=== PATIENT | male | born 1935 | race Caucasian/White ===

== ENCOUNTER → 2016-07-23 | Outpatient (CLI) | payer OTHER, BC ==
[~2016-07-23] VITALS: Ht 182.9 cm; Wt 110.7 kg
[~2016-07-23] MED LIST: ALEVE220 M1 PO; ALLOPURINOL 30300 M2 PO; AMBIEN 10 MG TA10 MG PO; ATIVAN1 MG PO; BACTRIM DS TAB1 EACH PO; BENICAR40 MG PO; CELEBREX 200 M200 M1 PO; CLONIDINE HCL0.2 M2 PO; CLONIDINE0.1 PO; COLACE100 MG PO; CYCLOBENZAPRINE5 MG PO; DYAZIDE 37.5-21 EACH PO; EQL CALCIUM IN1 EACH PO; FISHOIL PO; FLOMAX0.4 MG PO; GLUCOSAMINE HC500 MG PO; HYDROCHLOROTHIA25 M1 PO; HYDROCODON-ACE1 EAC5; HYDROCODON-ACE1 EAC8 PO; HYDROCODONE-APA1 TA1 PO; HYSINGLA ER40 MG PO; KEFLEX500 MG PO; LIORESAL 10 MG10 MG PO; LYSINE500 MG PO; MAGNESIUM400 MG PO; MEDROL4 MG PO; MOBIC15 MG PO; MOBIC7.5 MG PO; NEURONTIN 300300 M1 PO; NORCO 10-325 T1 EACH PO; NORCO 5-325 TA1 EACH PO; NORCO 7.5-3251 EACH PO; NORVASC5 MG PO; ONDANSETRON HCL4 M2 PO; PERCOCET 5-3251 EACH PO; POTASSIUM20; PREDNISONE 10 M10 M1 PO; PREDNISONE 20 M20 MG PO; PROSCAR 5MG TABL5 MG PO; RELAFEN750 MG PO; SELENIUM100 MCG PO; TIZANIDINE HCL 22 M1 PO; TIZANIDINE HCL4 MG PO; TRIAMTERENE-HC1 EAC2 PO; VITAMIN A; VITAMIN B COMP1 EACH PO; VITAMIN B-12100 MC1 PO; VITAMIN C 250250 MG PO; VITAMIN D1000 UNI1 PO; VITAMIN D400 UNI1 PO; VITAMINC500 PO
--- NOTE | ~2016-07-23 | HPC ---
[facility] [place] [address] PAIN MANAGEMENT CONSULTATION Name: JOSÉ LUIS SALAMANCA Room #: REG MUSA Shahida#: [id number] Admission: 07/23/16 Attend Phys: Joce Mason DO Discharge: Date of : 35 Report #: [id number] THIS REPORT FOR: //name// CC: Epifanio Mason HISTORY OF PRESENT ILLNESS: The patient is an 81-year-old gentleman, well known to the pain clinic, typically treated for DJD affecting his knees, axial back pain, myofascial pain component, requiring complex medication management. Last urine drug screen was accomplished at last visit 05/27/2016. It was positive for prescribed medications. The patient has been stable on hydrocodone 10/325 up to 4 a day. At last visit, we suggested increased physical activity and maintain current medications. In the interval since we last saw him, he was seen in the ER on 07/17/2016. He states his right knee "buckled", causing trauma to his left toe and knee. He presented to the ER, was found to have a fracture of distal phalange of the left great toe and osteoarthritis in his knee. Today, he notes the knee pain, which had been quite problematic and actually seems to be getting worse somewhat "turned the corner" and is getting little better today. PHYSICAL EXAMINATION: Shows an 81-year-old gentleman, BMI is modestly elevated at 33.1 kilograms per meter squared. Vital signs are generally stable as noted in the EMR. He does have some ballottable edema, left knee. Left great toe is ecchymotic, compatible with the recent fracture. Prior to his fall, he had had some left elbow pain, which was problematic seems to be intermittent. It is unremarkable at this time. Chronic right shoulder pain. Again, remains unchanged. Gait is generally antalgic, favoring the left knee and foot. Diffuse tenderness across the low back. No discrete trigger points are noted. We reviewed the fact that opiate medications are being used to provide analgesia adequate to support activities of daily living, not attempting to achieve a specific pain score on the 0-10 Visual Analog Scale. The current opiate medications are providing sufficient analgesia to allow the patient to participate in activities of daily living. The patient is not exhibiting any aberrant behavior suggestive of drug diversion. The patient is not having any adverse reactions to medications. The patient is not suffering from daytime somnolence or mental acuity changes. The patient is managing opiate-induced constipation with appropriate nwwa-zhf-ccbczpz agents and dietary considerations. The patient was counseled on concern for caution with operating a motor vehicle while using opiate medications. A physical exam was performed and the patient's functional status was evaluated. All patients with back pain were advised against the bed rest greater than 4 days and were advised to return to normal activities. Pain score assessment was noted and the treatment plan was reviewed with the patient. All current medications, both prescribed and OTC were reviewed and reconciled on the [address] [address] PAIN MANAGEMENT CONSULTATION Name: JOSÉ LUIS SALAMANCA Room #: REG Abbey Pinedo#: [id number] Admission: 07/23/16 Attend Phys: Joce Mason DO Discharge: Date of : 35 Report #: [id number] electronic medical record. Tobacco screening was accomplished and smoking cessation was advised when indicated. BMI was noted and diet/exercise modification was recommended for all patients following outside normal parameters. I reviewed with the patient today their responsibilities to safeguard prescription medications, reviewed their responsibility to utilize medications only as prescribed by the physician. They are to seek and receive pain medications only from 1 physician group ( [facility]). They are to use 1 pharmacy and keep the clinic informed if they change pharmacies. Their responsibilities include making followup visits in a timely fashion and to avoid abrupt discontinuation of medication usage. Their responsibilities further include bringing their medications (bottles from the pharmacy with residual pills) to the visit for possible confirmation of pill counts and the patient understands it is their responsibility to submit to random drug screens to ensure both that the medications prescribed are present, and that no other controlled substances are present. All prescriptions provided today were generated electronically. ASSESSMENT: Degenerative joint disease, bilateral knees, axial back pain, requiring complex medication management, recent trauma to the left knee and toe. RECOMMENDATIONS: Continue current medications unchanged, hydrocodone 10/325 up to 4 a day, Meloxicam 15 mg 1 a day, follow up in 2 months for reevaluation. <ELECTRONICALLY SIGNED> By: Joce Mason DO 07/26/16 1538 [id number] Joce Mason DO /nt
[2016-07-23 09:24] VITALS: BP 142/87
== END | disposition home or self-care (01) ==
LOC: PAIN 06:45
DX: M17.0 Bilateral primary osteoarthritis of knee (principal); M54.9 Dorsalgia, unspecified; S92.412A Displaced fracture of proximal phalanx of left great toe, initial encounter for closed fracture; W19.XXXA Unspecified fall, initial encounter

== ENCOUNTER → 2016-09-20 | Outpatient (CLI) | payer OTHER, BC ==
[~2016-09-20] VITALS: Ht 182.9 cm; Wt 109.1 kg
--- NOTE | ~2016-09-20 | HPC ---
[facility] [place] [place] [address] PAIN MANAGEMENT CONSULTATION Name: CHEIKHJOSÉ LUIS Boyd Room #: REG MUSA Pinedo#: [id number] Admission: 09/20/16 Attend Phys: Joce Mason DO Discharge: Date of : 35 Report #: [id number] THIS REPORT FOR: //name// CC: Epifanio Mason HISTORY OF PRESENT ILLNESS: The patient is an 81-year-old gentleman, long known to the pain clinic, being treated for DJD bilateral knees, chronic pain syndrome, axial back pain, myofascial pain requiring complex medication management. Last seen in the pain clinic on 07/23/2016. The patient was continued on hydrocodone 10/325 four a day, meloxicam 15 mg p.r.n., on a nondaily basis, and baclofen 10 mg at bedtime p.r.n. The patient returns to pain clinic today. We had a moderately prolonged visit, he was seen from approximately 08:05 to 08:30 greater than 50% of the 25-minute visit was spent in counseling the patient. Last urine drug screen 05/27/2016 was positive for prescribed medications. I did note that back in 2014, his eGFR was 49. Concerned that with some compromised renal function, we might want to discontinue the meloxicam even though it is only being used on a p.r.n. basis. I did order BUN and creatinine today, after explaining this patient the reasons for this. The patient has lost a fair bit of weight. He still states he wants to lose about 40 pounds. He is at about 240 pounds and wants to get down to 205. We talked about dietary restrictions including using less complex carbohydrates and sugars. I did encourage him to increase caloric consumption i.e. physical activity. We talked at length about walking on a daily basis. If he can walk for 20-40 minutes, to increase his heart rate, this often will increase daily basal metabolic rate. He has had some issues with the knees, chronic right shoulder pain and back pain has been his primary pain complaint. He states his left knee, occasionally is a little problematic with walking. Physical exam shows possible small amount of ballottable edema though fairly nominal, the ligaments are intact. He tells me, he has been diagnosed with "bone on bone" arthritis in his left knee. We talked about Synvisc injections. After discussion with the patient today, it sounds like he may have had a series of three injections at his orthopedist sometime ago with good efficacy. Suggested maybe time to consider revisiting that prospect. We will have him start increasing physical activity, if the knee becomes a very limiting factor for walking, I would strongly suggest he reconsider another series of Synvisc injections. I can do that or he can have his orthopedist do it. Regarding his orthopedist, he did have an MRI of the right shoulder, which did note a rotator cuff tear. His physical therapist, Dr. Clyde De La Rosa has sent him [address] [address] PAIN MANAGEMENT CONSULTATION Name: JOSÉ LUIS DE LA ROSA Room #: REG MUSA Pinedo#: [id number] Admission: 09/20/16 Attend Phys: Joce Mason DO Discharge: Date of : 35 Report #: [id number] to physical therapy. He is in the midst of an 8-week physical therapy course. He will follow up with Dr. De La Rosa at that time for consideration for surgery if indicated. PHYSICAL EXAMINATION: Otherwise today shows an 81-year-old gentleman subjective pain score is 06/10, again, primarily in back and right shoulder. He had fallen before his last visit and had a broken toe, that has healed likely. He describes a constant, aching sensation, exacerbated with walking and other movement. BMI again is 32.6 kilograms per meter squared. Blood pressure is nominally elevated at 144/91, pulse 60, respirations are 18. NEUROLOGIC: Alert and oriented to person, place, and time, judged to be a reasonable historian. Cervical range of motion is full. Right shoulder shows slight decrease in range of motion activity. Some diffuse axial back pain. No discrete trigger points are noted. Lower extremity strength is generally symmetric, as noted, left knee shows some possible ballottable edema, fairly nominal. Ligaments are intact. ASSESSMENT: Degenerative joint disease, bilateral knees by history, left greater than right; chronic pain syndrome requiring complex medication management, axial back pain, myofascial pain component, stable on baseline schedule II narcotic, hydrocodone 10/325 four a day. We reviewed the fact that opiate medications are being used to provide analgesia adequate to support activities of daily living, not attempting to achieve a specific pain score on the 0-10 Visual Analog Scale. The current opiate medications are providing sufficient analgesia to allow the patient to participate in activities of daily living. The patient is not exhibiting any aberrant behavior suggestive of drug diversion. The patient is not having any adverse reactions to medications. The patient is not suffering from daytime somnolence or mental acuity changes. The patient is managing opiate-induced constipation with appropriate teli-kse-jjmzfds agents and dietary considerations. The patient was counseled on concern for caution with operating a motor vehicle while using opiate medications. A physical exam was performed and the patient's functional status was evaluated. All patients with back pain were advised against the bed rest greater than 4 days and were advised to return to normal activities. Pain score assessment was noted and the treatment plan was reviewed with the patient. All current medications, both prescribed and OTC were reviewed and reconciled on the electronic medical record. Tobacco screening was accomplished and smoking cessation was advised when indicated. BMI was noted and diet/exercise modification was recommended for all patients following outside normal parameters. I reviewed with the patient today their responsibilities to safeguard prescription medications, reviewed their responsibility to utilize medications [address] [address] PAIN MANAGEMENT CONSULTATION Name: CHEIKHJOSÉ LUIS Room #: REG [facility].#: [id number] Admission: 09/20/16 Attend Phys: Joce Mason DO Discharge: Date of : 35 Report #: [id number] only as prescribed by the physician. They are to seek and receive pain medications only from 1 physician group ( [facility]). They are to use 1 pharmacy and keep the clinic informed if they change pharmacies. Their responsibilities include making followup visits in a timely fashion and to avoid abrupt discontinuation of medication usage. Their responsibilities further include bringing their medications (bottles from the pharmacy with residual pills) to the visit for possible confirmation of pill counts and the patient understands it is their responsibility to submit to random drug screens to ensure both that the medications prescribed are present, and that no other controlled substances are present. All prescriptions provided today were generated electronically. RECOMMENDATION 1. BUN and creatinine and eGFR today. We will have the patient call back later in the week for this result. If renal function remains somewhat below normal, we will ask him to discontinue Meloxicam altogether. 2. We will continue hydrocodone 10/325 up to 4 a day, baclofen 10 mg at bedtime as needed. Again, last urine drug screen 05/27/2016 was positive for prescribed medications. Increase physical activity including daily walking. Continue with dietary discretion and weight reduction. Discharged in good and stable condition. Follow up in 2 months for reevaluation or earlier if needed for left knee pain. By: [id number] Joce Mason, /nt
[2016-09-20 08:12] VITALS: BP 144/91
[2016-09-20 09:57] LABS: CREATININE 1.3 mg/dL (0.7-1.3)
== END ==
LOC: PAIN 06:47
PROVIDERS: Anesthesiology Pain Medicine
DX: M17.0 Bilateral primary osteoarthritis of knee (principal); G89.4 Chronic pain syndrome

== ENCOUNTER → 2016-11-25 | Outpatient (CLI) | payer OTHER, BC ==
[~2016-11-25] VITALS: Ht 182.9 cm; Wt 108.9 kg
[~2016-11-25] MED LIST changes: +VOLTAREN GEL 1100 G2 TOP
--- NOTE | ~2016-11-25 | HPC ---
[facility] [address] [place] [address] PAIN MANAGEMENT CONSULTATION Name: JOSÉ LUIS SALAMANCA Deb Room #: REG [facility] Shahida#: [id number] Admission: 11/25/16 Attend Phys: Joce Mason DO Discharge: Date of : 35 Report #: [id number] THIS REPORT FOR: //name// CC: Epifanio Mason The patient is a very pleasant 81-year-old gentleman typically treated for axial back pain and DJD affecting bilateral knees with component of right shoulder DJD requiring complex high risk medication management. Last seen in the pain clinic on 09/20/2016. Continue on hydrocodone 10/325 four a day, meloxicam 15 mg on a nondaily basis and baclofen 10 mg at bedtime. Last urine drug screen 05/27/2016 was positive for prescribed medications. I did order BUN and creatinine on the patient, BUN is marginally elevated at 19, creatinine is the high and normal at 1.3. The patient returns to pain clinic today. He notes the pain is generally well controlled. Again, primarily low back, knees and right shoulder. A constant aching sensation. He rates it 3-4 on a VAS, exacerbated with walking and movement. Some relief with medication and being recumbent. He notes he is participating in all activities of his daily living. No problems with daytime somnolence, mental acuity changes or constipation. He did follow up with Dr. Sullivan, he incidentally notes that he is having concerns with increasing urinary frequency and nocturia. PHYSICAL EXAMINATION: GENERAL: Shows an 81-year-old gentleman, BMI is modestly elevated at 32.5 kilograms per meter squared. VITAL SIGNS: Blood pressure 146/89, pulse 60, respirations 20. NEUROLOGIC: Cranial nerves 2-12 are grossly intact. HEENT: Pupils equal, reactive to light and accommodation. Extraocular muscles are intact. MUSCULOSKELETAL: Slight decreased range of motion of the right shoulder and all planes. Strength is generally adequate. Gait is tandem. Subjective tenderness in the low back and bilateral knees, no ballotable edema is noted. ASSESSMENT: Symptomatic degenerative joint disease, affecting bilateral knees, right shoulder, axial back pain requiring high risk complex medication management in a gentleman with benign prostatic hypertrophy, increasing nocturia and frequency, high normal BUN and creatinine levels, and hypertension. RECOMMENDATIONS: 1. We will discontinue meloxicam even nondaily use due to the tenuous renal function and hypertension. We will try Voltaren gel topically to the right [facility] [address] [place] [place] [address] PAIN MANAGEMENT CONSULTATION Name: JOSÉ LUIS SALAMANCA Room #: REG MUSA Shahida#: [id number] Admission: 11/25/16 Attend Phys: Joce Mason DO Discharge: Date of : 35 Report #: [id number] shoulder and knees. Prescriptions were generated for same. 2. Strongly recommend the patient to follow up with his genitourinary physician regarding BPH symptoms of nocturia and frequency. He has been taking finasteride and tamsulosin. 3. Continue current narcotic unchanged, hydrocodone 10/325 up to 4 a day and baclofen 10 mg at bedtime. I have taken the liberty of writing for 2 months of current medications. Follow up at that time, earlier if needed. We did talk about weight reduction, increasing physical activity, consideration for recovery room rn 30 minute walks along with PT which he is currently doing for the shoulder. In total, patient was seen for approximately 25 minutes from 3917-0438 hours. Discharged in good and stable condition. <ELECTRONICALLY SIGNED> By: Joce Mason DO 11/26/16 1225 1519 2344 Joce Mason DO /nt
[2016-11-25 14:51] VITALS: BP 146/89
== END ==
LOC: PAIN 07:05
DX: M17.0 Bilateral primary osteoarthritis of knee (principal); M19.011 Primary osteoarthritis, right shoulder

== ENCOUNTER → 2017-01-17 | Outpatient (CLI) | payer OTHER, BC ==
[~2017-01-17] VITALS: Ht 182.9 cm; Wt 110.2 kg
--- NOTE | ~2017-01-17 | HPC ---
[facility] [address] [place] [address] PAIN MANAGEMENT CONSULTATION Name: JOSÉ LUIS SALAMANCA [id number] Admission: 01/17/17 Attend Phys: Joce Mason DO Discharge: Date of : 35 Report #: [id number] THIS REPORT FOR: //name// CC: Epifanio Mason HISTORY OF PRESENT ILLNESS: The patient is an 81-year-old gentleman well known to the pain clinic, typically treated for axial back pain, DJD affecting bilateral knees and right shoulder; chronic pain requiring complex medication management. Comorbidity includes benign prostatic hypertrophy. Last seen in the pain clinic on 11/25/2016. Continued on hydrocodone 10/325 up to 4 a day. Discontinue meloxicam due to elevated BUN (19), trial Voltaren gel topically. Baclofen 10 mg at bedtime. Returns to pain clinic today. Notes pain impact score is actually fairly low, 24/70. Last urine drug screen was on 12/26/2015. We did obtain a buccal swab today. No aberrant behavior, simply complying with our opiate consent to treat contract. He returns to pain clinic today noting pain is 4 on a VAS. Filled the Voltaren gel, was not helpful. We would like to resume meloxicam. Rates his pain as 4 on a VAS, low back and right shoulder. PHYSICAL EXAMINATION: Shows 81-year-old gentleman, BMI is 32.9 kilograms per meter squared. Blood pressure is modestly elevated at 137/94, pulse 64, respirations are 18. Cervical range of motion is full. Actually right shoulder shows pretty good range of motion. Diffuse tenderness across the low back. Gait is tandem. Lumbar flexion is limited. We reviewed the fact that opiate medications are being used to provide analgesia adequate to support activities of daily living, not attempting to achieve a specific pain score on the 0-10 Visual Analog Scale. The current opiate medications are providing sufficient analgesia to allow the patient to participate in activities of daily living. The patient is not exhibiting any aberrant behavior suggestive of drug diversion. The patient is not having any adverse reactions to medications. The patient is not suffering from daytime somnolence or mental acuity changes. The patient is managing opiate-induced constipation with appropriate plbl-wam-aapwkja agents and dietary considerations. The patient was counseled on concern for caution with operating a motor vehicle while using opiate medications. A physical exam was performed and the patient's functional status was evaluated. All patients with back pain were advised against the bed rest greater than 4 days and were advised to return to normal activities. Pain score assessment was noted and the treatment plan was reviewed with the patient. All current [address] [address] PAIN MANAGEMENT CONSULTATION Name: JOSÉ LUIS SALAMANCA Room #: REG MUSA Pinedo#: [id number] Admission: 01/17/17 Attend Phys: Joce Mason DO Discharge: Date of : 35 Report #: [id number] medications, both prescribed and OTC were reviewed and reconciled on the electronic medical record. Tobacco screening was accomplished and smoking cessation was advised when indicated. BMI was noted and diet/exercise modification was recommended for all patients following outside normal parameters. I reviewed with the patient today their responsibilities to safeguard prescription medications, reviewed their responsibility to utilize medications only as prescribed by the physician. They are to seek and receive pain medications only from 1 physician group ( [facility]). They are to use 1 pharmacy and keep the clinic informed if they change pharmacies. Their responsibilities include making followup visits in a timely fashion and to avoid abrupt discontinuation of medication usage. Their responsibilities further include bringing their medications (bottles from the pharmacy with residual pills) to the visit for possible confirmation of pill counts and the patient understands it is their responsibility to submit to random drug screens to ensure both that the medications prescribed are present, and that no other controlled substances are present. All prescriptions provided today were generated electronically. ASSESSMENT: 1. Chronic axial back pain, lumbar radiculopathy requiring high risk complex medication management. 2. Degenerative joint disease affecting knees and right shoulder. 3. Component of benign prostatic hypertrophy. RECOMMENDATION: 1. We reviewed our opiate consent to treat contract today. Again, buccal drug swab was accomplished today. 2. Continue hydrocodone 10/325 up to 4 a day. 3. We will resume meloxicam 15 mg to be used on a "nondaily" basis, 1 tablet up to 4 times a week. We talked about risks of nonsteroidal anti-inflammatory medications and coronary artery disease risk. We will also monitor BUN and creatinine. We will recheck in 6 months (in the June-July timeframe). Discharged in good and stable condition. Follow up in 2 months for reevaluation. <ELECTRONICALLY SIGNED> By: Joce Mason DO 01/19/17 0802 [id number] Joce Mason DO /nt
[2017-01-17 10:00] VITALS: BP 137/94
== END ==
LOC: PAIN 07:00
DX: M17.0 Bilateral primary osteoarthritis of knee (principal); M19.011 Primary osteoarthritis, right shoulder; M54.16 Radiculopathy, lumbar region

== ENCOUNTER → 2017-03-25 | Outpatient (CLI) | payer OTHER, BC ==
[~2017-03-25] VITALS: Ht 182.9 cm; Wt 109.8 kg
[~2017-03-25] MED LIST changes: +AVAPRO300 MG PO; +BYSTOLIC 5 MG5 M1 PO; +DEMADEX20 MG PO; +EDARBYCLOR 40-1 EACH PO; +ELIQUIS5 MG PO; +HYDROCODON-ACE1 EAC5 PO; +KEFLEX500 M1 PO; +LASIX 40 MG TAB40 M2 PO; +MINOCIN100 MG PO; +POTASSIUM20 PO; +TRAZODONE HCL50 MG PO; +ZANAFLEX4 MG PO
--- NOTE | ~2017-03-25 | HPC ---
[facility] [address] [place] [address] PAIN MANAGEMENT CONSULTATION Name: JOSÉ LUIS SALAMANCA [id number] Admission: 03/25/17 Attend Phys: Joce Mason DO Discharge: Date of : 35 Report #: [id number] THIS REPORT FOR: //name// CC: Epifanio Mason The patient is an 81-year-old gentleman, typically treated for axial back pain, DJD affecting knees, bilateral and right shoulder, requiring high risk complex medication management. The patient was last seen in pain clinic 01/17/2017. He was continued on hydrocodone 10/325 up to 4 a day. Buccal swab random drug screen was accomplished, which was positive for prescribed medications and no others. He returns to pain clinic today noting medications continue to provide sufficient analgesia to participate in activities of daily living. He is having a little bit of lower extremity edema. We checked his BUN last time and it was a little elevated at 19. I have enabled him to take Meloxicam, but only on a nondaily basis. He is taking it once or twice a week. 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 Epifanio Lezama regarding the lower extremity edema, although it is fairly nominal. We did suggest that he hold off on all NSAID use until he sees Dr. Lezama regarding the edema. We reviewed the fact that opiate medications are being used to provide analgesia adequate to support activities of daily living, not attempting to achieve a specific pain score on the 0-10 Visual Analog Scale. The current opiate medications are providing sufficient analgesia to allow the patient to participate in activities of daily living. The patient is not exhibiting any aberrant behavior suggestive of drug diversion. The patient is not having any adverse reactions to medications. The patient is not suffering from daytime somnolence or mental acuity changes. The patient is managing opiate-induced constipation with appropriate syid-slo-rvpbumu agents and dietary considerations. The patient was counseled on concern for caution with operating a motor vehicle while using opiate medications. A physical exam was performed and the patient's functional status was evaluated. All patients with back pain were advised against the bed rest greater than 4 days and were advised to return to normal activities. Pain score assessment was noted and the treatment plan was reviewed with the patient. All current medications, both prescribed and OTC were reviewed and reconciled on the electronic medical record. Tobacco screening was accomplished and smoking cessation was advised when indicated. BMI was noted and diet/exercise modification was recommended for all patients following outside normal parameters. [address] [address] PAIN MANAGEMENT CONSULTATION Name: JOSÉ LUIS SALAMANCA Room #: REG [facility]#: [id number] Admission: 03/25/17 Attend Phys: Joce Mason DO Discharge: Date of : 35 Report #: [id number] I reviewed with the patient today their responsibilities to safeguard prescription medications, reviewed their responsibility to utilize medications only as prescribed by the physician. They are to seek and receive pain medications only from 1 physician group ( [facility]). They are to use 1 pharmacy and keep the clinic informed if they change pharmacies. Their responsibilities include making followup visits in a timely fashion and to avoid abrupt discontinuation of medication usage. Their responsibilities further include bringing their medications (bottles from the pharmacy with residual pills) to the visit for possible confirmation of pill counts and the patient understands it is their responsibility to submit to random drug screens to ensure both that the medications prescribed are present, and that no other controlled substances are present. All prescriptions provided today were generated electronically. The patient states that he has been using hydrocodone up to 4 a day with good efficacy. He rates his subjective pain score 7 on a VAS, pain is exacerbated with movement and walking. He was given baclofen sometime ago for some spasm at bedtime, ne notes really no efficacy with this. Reviewing his chart, it looks like he had had tizanidine back in 2011, it had helped some at that time. PHYSICAL EXAMINATION: Shows an 81-year-old gentleman, BMI is 32.8 kg/m2. Blood pressure 168/85 (recently switched his antihypertensive to Avapro), pulse 73, and respirations 16. He is alert and oriented to person, place and time, judged to be a reasonable historian. Again, moderately endomorphic build, rises from chair using armrest. Gait is tandem, though he has pain in the knees. There is notable ballotable edema and the ligaments are intact. ASSESSMENT: Symptomatic degenerative joint disease, bilateral knees and right shoulder, axial back pain requiring high risk complex medication management, the patient is stable on baseline medication. RECOMMENDATIONS: 1. Continue hydrocodone 10/325, I have taken the liberty of writing 120 tablets with a refill in 4 weeks. 2. I did discontinue baclofen. Try tizanidine 4 mg up to t.i.d., limit 45 tablets for 30 days if needed for spasm. Hold off on Meloxicam until he follows up with Dr. Lezama regarding +1 pretibial edema. Discharged in good and stable condition. <ELECTRONICALLY SIGNED> By: Joce Mason DO 04/07/17 0913 [id number] [id number] Joce Mason, DO /nt
[2017-03-25 09:11] VITALS: BP 168/85
== END ==
LOC: PAIN 07:35
DX: M17.4 Other bilateral secondary osteoarthritis of knee (principal); M19.211 Secondary osteoarthritis, right shoulder; Z79.899 Other long term (current) drug therapy

== ENCOUNTER → 2017-05-06 | Outpatient (CLI) | payer OTHER, BC | LOC: ULTRA 15:11 | DX: R60.0 Localized edema (principal) ==

== ENCOUNTER → 2017-05-26 | Outpatient (CLI) | payer OTHER, BC ==
[~2017-05-26] VITALS: Ht 182.9 cm; Wt 108.9 kg
--- NOTE | ~2017-05-26 | HPC ---
[facility] [address] [place] [address] PAIN MANAGEMENT CONSULTATION Name: CHEIKHJOSÉ LUIS Deb Room #: REG Abbey Pinedo#: [id number] Admission: 05/26/17 Attend Phys: Joce Mason DO Discharge: Date of : 35 Report #: [id number] THIS REPORT FOR: //name// CC: Epifanio Mason DATE OF SERVICE: 05/26/2017 HISTORY OF PRESENT ILLNESS: The patient is an 82-year-old gentleman being treated for DJD affecting knees and shoulders, axial back pain, requiring complex medication management. Last seen in pain clinic on 02/23/2017. Continued on hydrocodone 10/325 up to 4 a day. We rotated from baclofen to tizanidine for p.r.n. spasm. We discontinued meloxicam. He had a little lower extremity pretibial edema. Last random drug screen on 01/17/2017 was positive for prescribed medications. He returns to pain clinic today noting medications generally providing sufficient analgesia to participate in activities of daily living, rates the pain a 4 on a VAS. He does have ongoing arthritis affecting knees and shoulders. BMI is elevated at 32.5 kilograms per meter squared. Blood pressure 140/79, pulse 60, respirations are 20. He has not fallen in the last 3 months. He does use a walker occasionally to help with getting around. He is hypertensive and on Eliquis for cardiac concerns. Medicine list was reconciled. His opiate consent to treat contract was signed on 12/26/2015. Functional assessment tool is . He scores in the low risk on the opiate assessment tool. The patient has started doing physical therapy for his shoulders. This was prescribed by Dr. Clyde De La Rosa. Still has pain in his back, knees and left foot. Again, rates his subjective pain score of 4. I talked about increasing physical activity. He admits to being relatively sedentary presently. We talked about going to one of the local shopping centers and/or "big box stores" and trying to walk for 30-40 minutes 2-3 times a week. We reviewed the fact that opiate medications are being used to provide analgesia adequate to support activities of daily living, not attempting to achieve a specific pain score on the 0-10 Visual Analog Scale. The current opiate medications are providing sufficient analgesia to allow the patient to participate in activities of daily living. The patient is not exhibiting any aberrant behavior suggestive of drug diversion. The patient is not having any adverse reactions to medications. The patient is not suffering from daytime somnolence or mental acuity changes. The patient is managing opiate-induced constipation with appropriate zdcn-brv-eorngbo agents and dietary considerations. The patient was counseled on concern [place] [address] PAIN MANAGEMENT CONSULTATION Name: JOSÉ LUIS DE LA ROSA Room #: REG CLAbbey Pinedo#: [id number] Admission: 05/26/17 Attend Phys: Joce Mason DO Discharge: Date of : 35 Report #: [id number] a motor vehicle while using opiate medications. A physical exam was performed and the patient's functional status was evaluated. All patients with back pain were advised against the bed rest greater than 4 days and were advised to return to normal activities. Pain score assessment was noted and the treatment plan was reviewed with the patient. All current medications, both prescribed and OTC were reviewed and reconciled on the electronic medical record. Tobacco screening was accomplished and smoking cessation was advised when indicated. BMI was noted and diet/exercise modification was recommended for all patients following outside normal parameters. I reviewed with the patient today their responsibilities to safeguard prescription medications, reviewed their responsibility to utilize medications only as prescribed by the physician. They are to seek and receive pain medications only from 1 physician group ( [facility]). They are to use 1 pharmacy and keep the clinic informed if they change pharmacies. Their responsibilities include making followup visits in a timely fashion and to avoid abrupt discontinuation of medication usage. Their responsibilities further include bringing their medications (bottles from the pharmacy with residual pills) to the visit for possible confirmation of pill counts and the patient understands it is their responsibility to submit to random drug screens to ensure both that the medications prescribed are present, and that no other controlled substances are present. All prescriptions provided today were generated electronically. ASSESSMENT: Chronic axial back pain, degenerative joint disease affecting knees and shoulders, requiring complex medication management, stable on baseline medication. RECOMMENDATION: Continue hydrocodone 10/325 up to 4 a day. I have taken the liberty of writing for 2 months of current medication. Follow up at that time, earlier if needed. <ELECTRONICALLY SIGNED> By: Joce Mason DO 05/30/17 0747 1420 0012 Joce Mason DO /nt
[2017-05-26 13:30] VITALS: BP 140/79
== END ==
LOC: PAIN 07:07
DX: M54.9 Dorsalgia, unspecified (principal); M17.0 Bilateral primary osteoarthritis of knee; M19.012 Primary osteoarthritis, left shoulder; M19.011 Primary osteoarthritis, right shoulder; Z79.899 Other long term (current) drug therapy

== ENCOUNTER → 2017-06-27 | Outpatient (CLI) | payer OTHER, BC | LOC: RAD 15:20 | DX: J90 Pleural effusion, not elsewhere classified (principal); I77.819 Aortic ectasia, unspecified site ==

== ENCOUNTER → 2017-07-22 | Outpatient (CLI) | payer OTHER, BC ==
[~2017-07-22] VITALS: Ht 182.9 cm; Wt 106.4 kg
[~2017-07-22] MED LIST changes: -DEMADEX20 MG PO; -EDARBYCLOR 40-1 EACH PO; -HYDROCODON-ACE1 EAC5 PO; -MINOCIN100 MG PO; -POTASSIUM20 PO
--- NOTE | ~2017-07-22 | HPC ---
[facility] [address] [place] [address] PAIN MANAGEMENT CONSULTATION Name: JOSÉ LUIS SALAMANCA Room #: REG [facility] Marycruz.#: [id number] Admission: 07/22/17 Attend Phys: Joce Mason DO Discharge: Date of : 35 Report #: [id number] THIS REPORT FOR: //name// CC: Epifanio Mason HISTORY OF PRESENT ILLNESS: The patient is an 82-year-old gentleman, typically treated for DJD, osteoarthritis of knees and shoulders and axial back pain, requiring complex medication management. Last seen in the pain clinic 05/26/2017. Continued on hydrocodone 10/325 up to 4 a day. We had rotated his muscle relaxant from baclofen to tizanidine due to lack of efficacy. Last random drug screen, 01/17/2017, is positive for prescribed medications. 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 He returns to pain clinic today noting general pain score is 3 on a VAS. Primary pain is low back, bilateral shoulders. Constant, aching sensation, rates it at 3 on a VAS, exacerbated with walking or movement. He has suffered with some lower extremity pretibial edema, left greater than right. To his credit, he has been trying to lose a little bit of weight. His BMI is down to 31.8 kilograms per meter squared. He had been up to around 34 BMI about a year ago, in early 2016. He is working with occupational therapy for fluid mobilization and goes there twice a week. He notes generally medications do provide him sufficient analgesia to participate in activities of daily living. We talked at length today about motivation for exercise. He had a dog years ago, a fairly large dog, that he got great ashely out of walking. Unfortunately, he lives in a rental home now and is unable to keep a pet. 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 Something that we get him out and moving, which may enable him to interact with dogs, which have given him ashely in the past. We reviewed the fact that opiate medications are being used to provide analgesia adequate to support activities of daily living, not attempting to achieve a specific pain score on the 0-10 Visual Analog Scale. The current opiate medications are providing sufficient analgesia to allow the patient to participate in activities of daily living. The patient is not exhibiting any aberrant behavior suggestive of drug diversion. The patient is not having any adverse reactions to medications. The patient is not suffering from daytime somnolence or mental acuity changes. The patient is managing opiate-induced constipation with appropriate yveb-ihn-spozafi agents and dietary considerations. The patient was counseled on concern for caution with operating a motor [place] [address] PAIN MANAGEMENT CONSULTATION Name: JOSÉ LUIS SALAMANCA Room #: REG CL[facility]bey Pinedo#: [id number] Admission: 07/22/17 Attend Phys: Joce Mason DO Discharge: Date of : 35 Report #: [id number] A physical exam was performed and the patient's functional status was evaluated. All patients with back pain were advised against the bed rest greater than 4 days and were advised to return to normal activities. Pain score assessment was noted and the treatment plan was reviewed with the patient. All current medications, both prescribed and OTC were reviewed and reconciled on the electronic medical record. Tobacco screening was accomplished and smoking cessation was advised when indicated. BMI was noted and diet/exercise modification was recommended for all patients following outside normal parameters. I reviewed with the patient today their responsibilities to safeguard prescription medications, reviewed their responsibility to utilize medications only as prescribed by the physician. They are to seek and receive pain medications only from 1 physician group ( [facility]). They are to use 1 pharmacy and keep the clinic informed if they change pharmacies. Their responsibilities include making followup visits in a timely fashion and to avoid abrupt discontinuation of medication usage. Their responsibilities further include bringing their medications (bottles from the pharmacy with residual pills) to the visit for possible confirmation of pill counts and the patient understands it is their responsibility to submit to random drug screens to ensure both that the medications prescribed are present, and that no other controlled substances are present. All prescriptions provided today were generated electronically. PHYSICAL EXAMINATION: GENERAL: Shows pleasant 82-year-old gentleman. BMI 31.8 kilograms per meter squared. VITAL SIGNS: Blood pressure 125/65, pulse 52 and respiratory rate 16. MUSCULOSKELETAL: Rises from the chair using armrest. Gait is generally tandem. Some diffuse back pain and tenderness in the joints. He does have a little pretibial edema as noted, left greater than right leg. He is wearing compressive hose. Strength is symmetric. Lumbar flexion is modestly limited. ASSESSMENT: Chronic axial back pain; degenerative joint disease and osteoarthritis affecting knees and shoulders, requiring complex medication management. Comorbidities include history of lymphoma, now in remission; history of deep venous thrombosis, for which he takes Eliquis; benign prostatic hypertrophy, for which he takes Flomax and Proscar and hypertension, for which he takes Bystolic. PLAN: I would like to continue current medications including hydrocodone [facility] [address] [place] [address] PAIN MANAGEMENT CONSULTATION Name: JOSÉ LUIS SALAMANCA Room #: REG [facility]#: [id number] Admission: 07/22/17 Attend Phys: Joce Mason DO Discharge: Date of : 35 Report #: [id number] up to 4 a day and tizanidine 4 mg t.i.d. for spasm, limit 45 tablets. Follow up in 2 months for reevaluation. <ELECTRONICALLY SIGNED> By: Joce Mason DO 07/25/17 0943 0907 1248 Joce Mason DO /nt
[2017-07-22 12:49] VITALS: BP 125/65
== END ==
LOC: PAIN 07:18
DX: M54.9 Dorsalgia, unspecified (principal); G89.29 Other chronic pain; M17.0 Bilateral primary osteoarthritis of knee; M19.012 Primary osteoarthritis, left shoulder; M19.011 Primary osteoarthritis, right shoulder; N40.0 Benign prostatic hyperplasia without lower urinary tract symptoms; I10 Essential (primary) hypertension; Z79.899 Other long term (current) drug therapy; Z86.718 Personal history of other venous thrombosis and embolism

== ENCOUNTER → 2017-08-12 | Outpatient (CLI) | payer OTHER, BC ==
[2017-08-12 11:14] LABS: CREATININE 1.4 mg/dL (0.7-1.3)
== END ==
LOC: CAT 08-10 16:42 → LABMALL 07:25 → CAT 16:54 → LABMALL 17:47
PROVIDERS: Internal Medicine Hematology & Oncology
DX: C85.12 Unspecified B-cell lymphoma, intrathoracic lymph nodes (principal)

== ENCOUNTER → 2017-09-19 | Outpatient (CLI) | payer OTHER, BC ==
[~2017-09-19] VITALS: Ht 182.9 cm; Wt 109.4 kg
--- NOTE | ~2017-09-19 | HPC ---
[facility] [address] [place] [address] PAIN MANAGEMENT CONSULTATION Name: JOSÉ LUIS SALAMANCA [facility] #: [facility] [id number] Admission: 09/19/17 Attend Phys: Joce Mason DO Discharge: Date of : 35 Report #: [id number] THIS REPORT FOR: //name// CC: Epifanio Mason DATE OF SERVICE: 09/19/2017 HISTORY OF PRESENT ILLNESS: The patient is an 82-year-old gentleman, long treated for axial back pain, osteoarthritis affecting shoulders and knees requiring complex medication management. Last seen in the pain clinic on 07/22/2017, continued on hydrocodone 10/325 four a day, tizanidine 4 mg 1 tablet as needed for spasm, limit 45 tablets for 30 days. Last random drug screen on 01/17/2017 was positive for prescribed medications and no others. The patient has multiple comorbidities including lymphoma which has been treated, is now in remission. History of DVT, on Eliquis. Unfortunately since our last medication visit, he developed some hematochezia and is now off the Eliquis. Some chronic right shoulder issues with diagnosis of rotator cuff injury, though to his credit, he is doing some range of motion activity and while he has weakness to resistance right rotator cuff muscles, his abduction and extension are fairly full range of motion for both shoulders. PHYSICAL EXAMINATION: Otherwise, physical exam is relatively unchanged, an 82-year-old gentleman, BMI is 32.7 kilograms per meter squared. Vital signs are stable as noted in the EMR. Alert and oriented to person, place and time, judged to be a reasonable historian. Rises from chair using the armrest. Has diffuse axial back pain. No discrete trigger points are noted. We reviewed the fact that opiate medications are being used to provide analgesia adequate to support activities of daily living, not attempting to achieve a specific pain score on the 0-10 Visual Analog Scale. The current opiate medications are providing sufficient analgesia to allow the patient to participate in activities of daily living. The patient is not exhibiting any aberrant behavior suggestive of drug diversion. The patient is not having any adverse reactions to medications. The patient is not suffering from daytime somnolence or mental acuity changes. The patient is managing opiate-induced constipation with appropriate gbca-psi-gfdsqfq agents and dietary considerations. The patient was counseled on concern for caution with operating a motor vehicle while using opiate medications. A physical exam was performed and the patient's functional status was evaluated. [address] [address] PAIN MANAGEMENT CONSULTATION Name: JOSÉ LUIS SALAMANCA Room #: REG CL Shahida#: [id number] Admission: 09/19/17 Attend Phys: Joce Mason DO Discharge: Date of : 35 Report #: [id number] All patients with back pain were advised against the bed rest greater than 4 days and were advised to return to normal activities. Pain score assessment was noted and the treatment plan was reviewed with the patient. All current medications, both prescribed and OTC were reviewed and reconciled on the electronic medical record. Tobacco screening was accomplished and smoking cessation was advised when indicated. BMI was noted and diet/exercise modification was recommended for all patients following outside normal parameters. I reviewed with the patient today their responsibilities to safeguard prescription medications, reviewed their responsibility to utilize medications only as prescribed by the physician. They are to seek and receive pain medications only from 1 physician group ([facility]). They are to use 1 pharmacy and keep the clinic informed if they change pharmacies. Their responsibilities include making followup visits in a timely fashion and to avoid abrupt discontinuation of medication usage. Their responsibilities further include bringing their medications (bottles from the pharmacy with residual pills) to the visit for possible confirmation of pill counts and the patient understands it is their responsibility to submit to random drug screens to ensure both that the medications prescribed are present, and that no other controlled substances are present. All prescriptions provided today were generated electronically. ASSESSMENT: Chronic axial back pain, osteoarthritis affecting knees and shoulders, chronic pain syndrome requiring complex medication management, stable on baseline medication including hydrocodone 10/325 up to 4 a day, tizanidine 4 mg 1 tablet up to t.i.d. as needed for spasm, typically 1-2 at bedtime, limit 45 tablets for 30 days. Follow up in 2 months for reevaluation. Reviewed that I am leaving the practice, will have him follow up with one of my [facility] partners. He has been stable on his medication for quite some time. No aberrant behavior suggestive of drug diversion. We will want to repeat another drug screen sometime this fall. By: 1549 0226 Joce Mason, /nt
[2017-09-19 12:59] VITALS: BP 150/83
== END ==
LOC: PAIN 06:34
DX: M17.0 Bilateral primary osteoarthritis of knee (principal); M19.012 Primary osteoarthritis, left shoulder; M19.011 Primary osteoarthritis, right shoulder; M54.5 Low back pain; G89.4 Chronic pain syndrome; Z79.899 Other long term (current) drug therapy

== ENCOUNTER 2017-09-22 17:15 | Inpatient (IN) | payer OTHER, BC ==
[~2017-09-22] VITALS: Ht 182.9 cm; Wt 108.1 kg
--- NOTE | ~2017-09-22 | D ---
[facility] [place] [address] [place] [address] DISCHARGE SUMMARY Name: JOSÉ LUIS SALAMANCA Room #: 214-P [facility] M.R.#: [id number] Admission: 09/22/17 Attend Phys: Arnoldo Sullivan MD, Discharge: Date of : 35 Report #: [id number] THIS REPORT FOR: //name// CC: Arnoldo Lezama DATE OF SERVICE: 09/24/2017 HOSPITAL COURSE: The patient is an 82-year-old male who was found to have intermittent complete heart block and significant bradydysrhythmias in the 20s. He subsequently was admitted and seen by the EP Service. He had a permanent pacemaker placed by Dr. Mendez yesterday. It has been interrogated this morning. It is appropriately working. He had a dual chamber [employer] pacemaker placed. The interrogation was unremarkable. The chest x-ray also unremarkable. Except for being mildly sore in his right shoulder, he has no complaints. The chest x-ray shows pacemaker placement. No pneumothorax. The patient will be discharged home with post-pacemaker instructions. He will resume his home medications, these will include Proscar, baclofen, irbesartan 300, Flomax, torsemide 20 mg, Trazodone 50. Followup will be scheduled in 7-[address] Mendez for a site check, and then, subsequently he will maintain follow up with myself in 4 months. He is to follow pacemaker restrictions. DISCHARGE DIAGNOSES: 1. Complete heart block with severe bradydysrhythmias. 2. Hypertension. 3. Paroxysmal atrial fibrillation. No clear documentation of this recently. 4. Prior B cell lymphoma. 5. Chronic back pain due to spinal stenosis. RECOMMENDATIONS AND PLAN: As stated above. By: 0916 0939 Arnoldo Sullivan MD, FACC /nt
--- NOTE | ~2017-09-22 | P ---
[facility] [place] [address] PROCEDURE REPORT Name: JOSÉ LUIS SALAMANCA Room #: 214-P [facility] IN M.R.#: [id number] Admission: 09/22/17 Attend Phys: Arnoldo Sullivan MD, Discharge: 09/24/17 Date of : 35 Report #: [id number] THIS REPORT FOR: //name// CC: Arnoldo Lezama DATE OF SERVICE: 09/23/2017 PACEMAKER IMPLANTATION: PREOPERATIVE DIAGNOSIS: Third-degree heart block. POSTOPERATIVE DIAGNOSIS: Third-degree heart block. 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 He is here for dual chamber pacemaker implantation. ANESTHESIA: The patient underwent MAC anesthesia with no anesthesia related complications. DESCRIPTION OF PROCEDURE: The patient underwent informed consent where we discussed the details of the procedure including the risk, which include but not limited to bleeding, infection, vascular damage, cardiac perforation, and pneumothorax. He understood these risks and is willing to proceed. The patient was brought to the EP laboratory in fasting and sedated state, prepped and draped in a sterile fashion. The pacemaker was placed on the right side given that he has a left-sided port. I obtained access. The patient received IV vancomycin prior to the procedure. The venogram showed patency of the right axillary vein. Next, lidocaine was injected. Incision was made and a pocket was created over the prepectoral fascia and access was obtained twice of the right axillary vein using the extrathoracic approach with sheaths positioned using the modified Seldinger technique. Next, leads were positioned in the right ventricular apex and right atrial appendage both with adequate pacing and sensing thresholds. Of note, the atrium had very poor P waves throughout, which is likely due to his advanced age. Next, leads were sutured to the prepectoral fascia. The device was connected, placed in the pocket. Pocket was closed in 3 layers after being irrigated with vancomycin. Steri-Strip was placed at the lateral edge. The patient awoke neurologically and hemodynamically intact with no complications and no significant bleeding. The implanted pacemaker was a [employer], model #RR2886, serial #[id number]. The atrial lead is [employer] model #2088, serial #[id number] with a P-wave of 0.7 millivolts, pacing impedance of 398 ohms and the pacing threshold 1.4 volts at 0.4 milliseconds. RV lead was [employer] model #2088TC, [address] [address] PROCEDURE REPORT Name: JOSÉ LUIS SALAMANCA Room #: 214-[facility] IN .R.#: [id number] Admission: 09/22/17 Attend Phys: Arnoldo Sullivan MD, Discharge: 09/24/17 Date of : 35 Report #: [id number], serial #[id number]. This lead demonstrated R waves of 5.1 millivolts, pacing impedance of 463 ohms and the pacing threshold 0.5 volts at 0.4 milliseconds. The pacemaker was programmed to the DDD 60-130 mode. CONCLUSIONS: 1. Successful dual-chamber pacemaker implantation. 2. Satisfactory atrial and ventricular pacing and sensing thresholds. <ELECTRONICALLY SIGNED> By: Kiran Mendez MD 10/03/17 1330 1756 2123 Kiran Mendez MD /nt
--- NOTE | ~2017-09-22 | HC ---
[facility] [place] [address] CONSULTATION Name: JOSÉ LUIS SALAMANCA Room #: 214-P [facility] IN ..#: [id number] Admission: 09/22/17 Attend Phys: Arnoldo Sullivan MD, Discharge: 09/24/17 Date of : 35 Report #: [id number] THIS REPORT FOR: //name// CC: Arnoldo Lezama DATE OF SERVICE: 09/23/2017 REASON FOR CONSULTATION: Complete heart block. 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 Sullivan with increased fatigue. He was noted to be bradycardic in the clinic. As such, his beta blockers were stopped. He was sent home with a veterans contact representative, which has demonstrated frequent episodes of complete heart block. This did not improve with cessation of beta tequila medications. His most recent echo was on 08/04/2017 showing EF of 65-70% with PA pressures in the 50s. He denies any chest pain. He does have increased shortness of breath and exertional dyspnea and some lightheadedness, but no syncope. REVIEW OF SYSTEMS: A 12-point review of systems was performed and was negative other than what I mentioned above. PAST MEDICAL HISTORY: As mentioned above. FAMILY HISTORY: Hypertension. SOCIAL HISTORY: He quit smoking. ALLERGIES: He has no known drug allergies. PHYSICAL EXAMINATION: VITAL SIGNS: Temperature 36.7, pulse 64, respiration 18, blood pressure 145/83, sats 93-97%. GENERAL: No acute distress. HEENT: Sclerae anicteric. Oropharynx is clear. NECK: Supple, no thyromegaly. HEART: Regular rate and rhythm with no murmurs, rubs, gallops. LUNGS: Clear to auscultation bilaterally. ABDOMEN: Soft, nontender, nondistended with no hepatosplenomegaly. EXTREMITIES: No clubbing, cyanosis or edema. NEUROLOGIC: Cranial nerves 2-12 are intact. LABORATORY DATA: White count 6, hemoglobin 15, platelets 158. Coags 1.0. Chemistries: Sodium 141, potassium 3.5, creatinine 1.2. Troponin is normal. [address] [address] CONSULTATION Name: JOSÉ LUIS SALAMANCA Room #: 214-P [facility] IN .R.#: [id number] Admission: 09/22/17 Attend Phys: Arnoldo Sullivan MD, Discharge: 09/24/17 Date of : 35 Report #: [id number] Chest x-ray shows no acute process. A 12-lead EKG shows a first-degree AV block with a right bundle branch block and 1:1 conduction. His chest x-ray shows left-sided port placed. ASSESSMENT: 1. Symptomatic bradycardia. 2. Symptomatic bradycardia secondary to sick sinus syndrome. 3. Symptomatic bradycardia secondary to complete heart block. 4. Atrial fibrillation. 5. Peripheral vascular disease. 6. B-cell lymphoma status post port placement. In summary, the patient has evidence of sinus bradycardia while sleeping, but also evidence of complete heart block despite stopping beta tequila therapy. As such, the patient meets criteria for dual chamber pacemaker implantation. We have discussed the details of the procedure including the risks, which include but not limited to bleeding, infection, vascular damage, cardiac perforation and pneumothorax. He understands these risks and is willing to proceed. Given his left-sided port, we will proceed with a right-sided dual chamber pacemaker insertion. Given his history of lymphoma, I would recommend that he undergo an MRI compatible pacemaker implantation. <ELECTRONICALLY SIGNED> By: Kiran Mendez MD 10/03/17 1330 1228 1929 Kiran Mendez MD /nt
--- NOTE | ~2017-09-22 | H ---
[facility] [place] [address] HISTORY AND PHYSICAL Name: JOSÉ LUIS SALAMANCA Room #: 214-P ADM IN M.R.#: [id number] Admission: 09/22/17 Attend Phys: Arnoldo Sullivan MD, Discharge: Date of : 35 Report #: [id number] THIS REPORT FOR: //name// CC: Arnoldo Lezama MD DATE OF SERVICE: 09/22/2017 HISTORY OF PRESENT ILLNESS: The patient is an 82-year-old male who I admitted directly to the CCU tonight. He has been having a history of some questionable paroxysmal AFib, Wenckebach and second degree heart block. A monitor was placed and showing significant periods of complete heart block with rates as low as 23-25 beats per minute. He has felt sluggish, but not syncopal or presyncopal. He lives independently in a house with 3 other gentleman in his own room. No current alcohol or tobacco use. He has felt fatigued at times, but he has not had any syncope, but with long periods of extensive complete heart block with AV dissociation. There is of AFib, although not on this monitor. There is some Wenckebach noted in addition. He appears to be in sinus rhythm tonight with a second-degree type 1 heart block, intermittent dropped beats here. His blood pressure has been maintained. He is alert and oriented. Denies any chest pain or pressure. He had a chest x-ray that is unremarkable. Echo Doppler was performed in our office on 08/04/2017, that report shows a concentric LVH, moderate grade 2 diastolic dysfunction, biatrial enlargement of a severe nature, mild to moderate MR and TR. PA pressure was 50. Aortic root mildly dilated 4.4 with mild aortic insufficiency. That will be in the Infinite system. MEDICATIONS: We had stopped his Bystolic when we saw him on 09/07/2017. His other meds have been baclofen, Crozet, irbesartan 300, Flomax, Demadex 20, Desyrel 50. PAST MEDICAL HISTORY: Positive for history of some paroxysmal AFib, Eliezer previously noted, bradycardia, thoracic aortic dissection, B-cell lymphoma, spinal stenosis, chronic back pain, degenerative joint disease, benign prostatic hypertrophy, hypertension, hypercholesterolemia, appendectomy, cholecystectomy, hernia repair, parathyroidectomy and hypercalcemia back in 2013, and tonsillectomy. SOCIAL HISTORY: He is . He does have some children in their 50s. He lives independently. No current alcohol or tobacco. He is retired. FAMILY HISTORY: Negative for premature coronary artery disease or sudden . REVIEW OF SYSTEMS: Essentially negative except for stated above with some nocturia. [facility] [address] [place] [address] HISTORY AND PHYSICAL Name: CHEIKHJOSÉ LUIS Deb Room #: 214-P [facility] IN M.R.#: [id number] Admission: 09/22/17 Attend Phys: Arnoldo Sullivan MD, Discharge: Date of : 35 Report #: [id number] LABORATORY DATA: Sodium 141, potassium 3.1, I will replace; BUN 21, creatinine 1.2, glucose 98. Liver function tests appear to be relatively normal. INR was 1.0. H and H is 15 and 46, white count 6000 and platelets 158. Chest x-ray was unremarkable. PHYSICAL EXAMINATION: GENERAL: Pleasant, alert. VITAL SIGNS: Pulse is in the 60 range. Blood pressure is 160/64. HEENT: Eyes reveal xanthelasmas. Pharynx is clear. NECK: Shows preserved upstrokes without JVD or bruits. LUNGS: Clear. CARDIAC: Regular rate and rhythm, S1, S2. ABDOMEN: Soft. No HSM or abdominal bruit. EXTREMITIES: Reveal trace of nonpitting edema. NEUROLOGIC: Nonfocal. SKIN: Warm and dry without xanthoma or ulcer. MUSCULOSKELETAL: Generalized arthritic changes. ASSESSMENT: 1. Complete heart block with significant bradycardia and pauses, relatively borderline symptomatic. 2. Hypertension. 3. History of chronic aortic dissection with ascending aortic aneurysm. 4. History of B-cell lymphoma. 5. Spinal stenosis. 6. Degenerative joint disease. RECOMMENDATIONS AND PLAN: He has been off all AV node inhibiting drugs for 2 weeks now, still with significant intermittent periods of high degree heart block. Electrophysiology Service has been consulted for permanent pacemaker placement. I will replace his potassium. The echo has been recently done and will be attached to the chart. Dr. Mendez will further inform the patient, although consent has been obtained. Thank you for asking me to assist in the care of this patient. By: [id number] Arnoldo Sullivan MD, FACC /nt
--- NOTE | ~2017-09-22 | EKG ---
[address] [address] ELECTROCARDIOGRAM REPORT Name: JOSÉ LUIS SALAMANCA Room #: 214-P ADM IN M.R.#: [id number] Admission: 09/22/17 Attend Phys: Arnoldo Sullivan MD, Discharge: Date of : 35 Report #: [id number] THIS REPORT FOR: //name// [facility] Test Date: 2017-09-22 Test Time: 18:47:11 Pat Name: JOSÉ LUIS SALAMANCA Department: Room: 214 P Gender: M Manager Business Information: Geeta FALCON : 1935 Requested By: Arnoldo Sullivan Order Number: [id number] MD: Patrick Eid Measurements Intervals [place] Rate: 64 P: 0 TX: 300 QRS: -57 QRSD: 170 T: -7 QT: 479 QTc: 495 Interpretive Statements Sinus rhythm Prolonged TX interval with blocked premature atrial complexes Right bundle branch block Inferior infarct, old Compared to ECG 01/28/2011 11:25:16 Atrial premature complexes now present Right bundle-branch block now present Electronically Signed On 09-23-2017 16:29:15 CDT by Patrick Eid [email or web address] <ELECTRONICALLY SIGNED> By: Patrick Eid MD, [facility] 09/23/17 1629 1847 1847 Patrick Eid MD, [facility] /EPI
[2017-09-22 18:10] LABS: HEMATOCRIT 46.2 % (42.0-52.0); HEMOGLOBIN 15.4 gm/dL (14.0-18.0); MCH 28.8 pg (26.0-34.0); MCHC 33.4 g/dL (28.0-37.0); MCV 86.4 fL (80.0-100.0); RBC 5.35 mil/uL (4.50-6.00)
[2017-09-22 18:17] LABS: ANION GAP 8 mmol/L (7-16); BUN 21 mg/dL (7-18); CALCIUM 9.4 mg/dL (8.5-10.1); CHLORIDE 105 mmol/L (98-107); CO2 28 mmol/L (21-32); CREATININE 1.2 mg/dL (0.7-1.3); GLUCOSE 98 mg/dL (74-106); POTASSIUM 3.1 mmol/L (3.5-5.1); SODIUM 141 mmol/L (136-145)
[2017-09-22 18:26] LABS: ALBUMIN 3.9 g/dL (3.4-5.0); SGOT 22 U/L (15-37); SGPT 38 U/L (30-65); TOTAL BILIRUBIN 0.9 mg/dL (<0.1-1.0); TOTAL PROTEIN 7.4 g/dL (6.4-8.2); TROPONIN-I < 0.04 ng/mL (<0.06)
[2017-09-22] MEDS ORDERED: DEMADEX20 MG PO (18:52)
[2017-09-22 19:15] VITALS: BP 161/68
[2017-09-22 23:27] VITALS: BP 153/69
[2017-09-23 05:04] VITALS: BP 144/73
[2017-09-23 07:49] VITALS: BP 145/83
[2017-09-23 11:58] VITALS: BP 169/961
[2017-09-23 19:47] VITALS: BP 176/99
[2017-09-23 23:57] VITALS: BP 173/97
[2017-09-24 04:27] VITALS: BP 155/71
[2017-09-24 07:45] VITALS: BP 152/83
[2017-09-24 11:28] VITALS: BP 152/83
[2017-09-24 12:24] VITALS: BP 150/85
== END 2017-09-24 15:33 | disposition home or self-care (01) | DRG 243 ==
LOC: 2N 17:15
PROVIDERS: Internal Medicine Cardiovascular Disease
PROC: 02H63JZ Insertion of Pacemaker Lead into Right Atrium, Percutaneous Approach (ICD-10-PCS; principal; 2017-09-23)
PROC: 0JH606Z Insertion of Pacemaker, Dual Chamber into Chest Subcutaneous Tissue and Fascia, Open Approach (ICD-10-PCS; principal; 2017-09-23)
PROC: 02HK3JZ Insertion of Pacemaker Lead into Right Ventricle, Percutaneous Approach (ICD-10-PCS; principal; 2017-09-23)
DX: I44.2 Atrioventricular block, complete (principal); C85.10 Unspecified B-cell lymphoma, unspecified site; I49.5 Sick sinus syndrome; I73.9 Peripheral vascular disease, unspecified; I48.0 Paroxysmal atrial fibrillation; M48.00 Spinal stenosis, site unspecified; M19.90 Unspecified osteoarthritis, unspecified site; N40.0 Benign prostatic hyperplasia without lower urinary tract symptoms; I08.1 Rheumatic disorders of both mitral and tricuspid valves; E87.6 Hypokalemia; E78.00 Pure hypercholesterolemia, unspecified; Z90.49 Acquired absence of other specified parts of digestive tract; Z79.899 Other long term (current) drug therapy; Z87.891 Personal history of nicotine dependence; Z82.49 Family history of ischemic heart disease and other diseases of the circulatory system
CPT/HCPCS: 10081; 62110; 62900; 70005

== ENCOUNTER 2017-10-19 11:50 | Inpatient (IN) | payer OTHER, BC ==
[~2017-10-19] VITALS: Ht 180.3 cm; Wt 107.5 kg
--- NOTE | ~2017-10-19 | P ---
[facility] [place] [address] PROCEDURE REPORT Name: JOSÉ LUIS SALAMANCA Room #: 206-P [facility] IN M.R.#: [id number] Admission: 10/19/17 Attend Phys: Kiran Mendez MD Discharge: Date of : 35 Report #: [id number] THIS REPORT FOR: //name// CC: Kiran Lezama PROCEDURE PERFORMED: Pacemaker implantation. PREOPERATIVE DIAGNOSIS: Infected pacemaker. POSTOPERATIVE DIAGNOSIS: Infected pacemaker. HISTORY OF PRESENT ILLNESS: The patient is an 82-year-old who recently underwent dual chamber [employer] pacemaker implantation placed on the right side. He was seen at the 1 week followup and was doing well, but called in this week and had noticed some drainage from his incision site. I saw him in the clinic and he appeared to have an infection of the skin and the incision was slightly opened. It seems like the incision had not spread to the pocket yet. He was seen by ID and had normal lab results including normal CRP, sed rate, white count and therefore, he was here for removal of the right-sided pacemaker, removal of his left-sided port that was previously placed for chemotherapy that he no longer uses and implantation of a new dual-chamber pacemaker on the left. ANESTHESIA: The patient underwent MAC anesthesia with no anesthesia related complications. PROCEDURE: The patient was brought to the EP laboratory in a fasting and sedated state and prepped and draped in a sterile fashion. He was already on IV antibiotics and received additional vancomycin prior to initiation of the procedure. Next, I injected lidocaine along the left clavicle slightly above where his port was placed. An incision was made and a pocket was created and then I removed his port. It was sutured down to the prepectoral fascia. I then cut the suture sleeve that was attached to the port portion of the system. Next, I obtained access to the left axillary vein times 2 using the extrathoracic approach. Once I had the left-sided access, I did pull the port and there was no bleeding noted. Prior to device implantation, I did perform a venogram to look for patency of left axillary vein and there was a patent left axillary vein obviously. Next, I positioned a lead into the right ventricular apex and with adequate pacing and sensing thresholds. Of note, the patient has very poor P waves and they were very small throughout even on the prior device. I repositioned the lead twice and then found a nice P-wave of 1.4 millivolts, which was the best that we saw as other places in the atrium were 0.4 to 0.5. The leads were then sutured to the prepectoral fascia. The device was connected to the pacemaker, tested and found to be functioning normally. A ClickShifttronic Tyrx antibiotic pouch was placed in the left pocket. The pocket was irrigated. The pocket was closed in 3 layers using 2-0 for the deep layer, 3-0 for the mid layer and 4-0 for the subcuticular layer. The newly implanted pacemaker was a [facility] [address] [place] [address] PROCEDURE REPORT Name: JOSÉ LUIS SALAMANCA Room #: 206-P [facility] IN M.R.#: [id number] Admission: 10/19/17 Attend Phys: Kiran Mendez MD Discharge: Date of : 35 Report #: [id number] [employer] model #[id number], serial #[id number]. The newly implanted lead was [employer] model #2088TC, 58 cm, serial #[id number] with a R-wave of 4.7 millivolts, pacing impedance of 540 ohms and pacing threshold 0.5 volts at 0.4 milliseconds. The RA lead was a [employer] model #2088TC, 52 cm, serial #[id number]. This lead demonstrated a P-wave of 1.2 millivolts, pacing impedance of 390 ohms and a pacing threshold of 0.5 volts at 0.5 milliseconds. The device was programmed to DDDR 60-130 mode. Next, the right-sided pocket was prepped in a sterile fashion. Lidocaine was administered. An incision was made and the old suture was removed. The device was disconnected from the leads and the suture sleeves were disconnected from the leads. The lead screws were screwed back in and then both leads were pulled under fluoroscopy. Pressure was held in the pocket, the pocket was irrigated, then packed and a dressing was placed on this. The patient awoke neurologically and hemodynamically intact. No complications and no significant bleeding. CONCLUSIONS: 1. Successful explantation of a left-sided port previously used for chemotherapy. 2. Successful dual-chamber pacemaker implanted on the left chest with stable atrial and ventricular pacing and sensing thresholds. 3. Removal of the right-sided device, which was high risk of becoming infected. By: 1518 1600 Kiran Mendez MD /nt
--- NOTE | ~2017-10-19 | HC ---
[facility] [place] [address] CONSULTATION Name: JOSÉ LUIS SALAMANCA Room #: 206-P ADM IN M.R.#: [id number] Admission: 10/19/17 Attend Phys: Kiran Mendez MD Discharge: Date of : 35 Report #: [id number] THIS REPORT FOR: //name// CC: Kiran Bertrandon DATE OF SERVICE: 10/19/2017 TYPE OF REPORT: Infectious disease consultation. HISTORY OF PRESENT ILLNESS: An 82-year-old white man who undergoes placement of permanent pacemaker for complete heart block. Few days to admission, developed drainage per pacemaker wound on the right chest. He is admitted and I started the patient on a combination of vancomycin, meropenem and scheduled for pacemaker replacement on the left side. The patient had a Port-A-Cath on the left side and this is to be removed during the re-implantation procedure. DRUG ALLERGIES: None listed. MEDICATIONS: The patient is on treatment with vancomycin 1250 mg IV every 12 hours, trazodone, potassium chloride supplementation, finasteride, torsemide, tamsulosin p.r.n., acetaminophen p.r.n., hydrocodone, tizanidine, lactobacillus acidophilus and meropenem 500 mg IV every 8 hours. PAST MEDICAL HISTORY: 1. History of lymphoma, left lower extremity, initially diagnosed to have edema of left lower extremity. 2. Hypertension. 3. Degenerative joint disease. 4. Cholecystitis. 5. Acute pancreatitis with cholecystectomy in the past. 6. Complete heart block, requiring permanent pacemaker. 7. Status post Port-A-Cath placement, left infraclavicular area. SOCIAL HISTORY: See H and P, old records. FAMILY HISTORY: See H and P, old records. REVIEW OF SYSTEMS: Right chest wound pain, drainage. No systemic symptoms. PHYSICAL EXAMINATION: GENERAL: A well-developed man, not toxic looking. VITAL SIGNS: With following vital signs: Temperature 98.5, pulse 66, respirations 18, BP 140/82, weight 107.5 kilograms and height 180.3 cm. HEENMT: Arcus cornealis status post cataract surgery. Mouth: No thrush. NECK: Supple. [facility] [address] [place] [address] CONSULTATION Name: JOSÉ LUIS SALAMANCA Room #: 206-P [facility] IN [facility]#: [id number] Admission: 10/19/17 Attend Phys: Kiran Mendez MD Discharge: Date of : 35 Report #: [id number] LUNGS: Clear. CHEST: Revealed right infraclavicular permanent pacemaker wound with dehiscent and purulence. Culture taken. There is a Port-A-Cath in left infraclavicular region. HEART: S1 and S2. No gallop or murmur. ABDOMEN: Soft. No masses or megaly. GENITALIA: Deferred. RECTAL: Deferred. EXTREMITIES: Swelling, left lower extremity, which occurred is better and after chemotherapy for lymphoma. LABORATORY DATA: Sodium 143, potassium 3.1, BUN 21 and creatinine 1.3. Albumin is 3.4. WBC 6.1; hemoglobin 13.7 and platelets 148,000. White blood cell count differential revealed 75% segmented neutrophils. MICROBIOLOGY DATA: Blood cultures were obtained and they are negative so far and the wound Gram stain and culture was ordered on October 19 and at the time of this dictation, October 21, I have no Gram stain and culture result. ASSESSMENT: 1. Surgical site infection and right-sided chest permanent pacemaker pocket infection. 2. Complete heart block. 3. Port-A-Cath. 4. History of large B-cell lymphoma, treated. 5. Swelling of the left lower leg secondary to above. 6. Chronic kidney disease. SUGGESTIONS: Recommend combination of vancomycin, meropenem and vancomycin to be dosed by pharmacy. Final recommendation pending culture results, hopefully within 24-72 hours. Proceed with pacemaker explantation. Thank you for requesting my suggestions. By: 0844 [id number] Kedar Mendez MD /nt
--- NOTE | ~2017-10-19 | H ---
[facility] [place] [address] HISTORY AND PHYSICAL Name: JOSÉ LUIS SALAMANCA Room #: 206-P [facility] M.R[facility]#: [id number] Admission: 10/19/17 Attend Phys: Kiran Mendez MD Discharge: Date of : 35 Report #: [id number] THIS REPORT FOR: //name// CC: Kiran Mendez Epifanio Lezama DATE OF SERVICE: 10/19/2017 REASON FOR ADMISSION: Pacemaker infection. HISTORY OF PRESENT ILLNESS: The patient is an 82-year-old male recently found to have symptomatic bradycardia with sick sinus syndrome and heart block, who underwent right-sided pacemaker implantation on 09/24/2017. The procedure was uneventful without complications and was seen for his 1-week followup and the incision appeared to be healing nicely. He called in yesterday, complaining of some discharge. I looked at the incision and it appeared to be infected; therefore, I recommended admission. The patient denies fevers or chills. He denies chest pain, shortness of breath, PND, orthopnea, presyncope or syncope. His most recent echocardiogram, prior to the device implantation, showed normal heart function with preserved EF. The reason the device was placed on the right side is because he has a left-sided port that was never removed and this was placed due to history of B-cell lymphoma status post chemo in the past. REVIEW OF SYSTEMS: GENERAL: No fevers or chills. HEENT: No blurred vision. CARDIOVASCULAR: As above. PULMONARY: No productive cough. GASTROINTESTINAL: No nausea or vomiting. GENITOURINARY: No dysuria. MUSCULOSKELETAL: No myalgias or arthralgias. ENDOCRINE: No heat or cold intolerance. PAST MEDICAL HISTORY: 1. AFib. 2. Abdominal aortic aneurysm. 3. Chronic renal insufficiency. 4. B-cell lymphoma with left-sided port. 5. Symptomatic bradycardia. 6. Heart block. 7. Pacemaker implantation. 8. Normal EF, EF of 65%-70%. SOCIAL HISTORY: Does not smoke. FAMILY HISTORY: Noncontributory. [facility] [address] [place] [address] HISTORY AND PHYSICAL Name: JOSÉ LUIS SALAMANCA Room #: 206-P [facility] ..#: [id number] Admission: 10/19/17 Attend Phys: Kiran Mendez MD Discharge: Date of : 35 Report #: [id number] ALLERGIES: None. MEDICATIONS: Have been reviewed. PHYSICAL EXAMINATION: VITAL SIGNS: Temperature is 36.9, pulse 66, respirations 18, blood pressure 140/82, sats are 98%. GENERAL: He is in no acute distress. HEENT: Sclerae are anicteric. HEART: Regular rate and rhythm with no murmurs, rubs, gallops. LUNGS: Clear to auscultation bilaterally. ABDOMEN: Soft, nontender, nondistended with no hepatosplenomegaly. EXTREMITIES: No clubbing, cyanosis, edema. NEUROLOGIC: Cranial nerves 2-12 are intact. LABORATORY DATA: White count 6.1, hemoglobin 13, platelets 148. Sodium 143, potassium 3.1, BUN 21, creatinine 1.3, glucose 101. AST, ALT, alkaline phosphatase normal. C-reactive protein is normal of less than 2. Blood cultures and wound cultures are pending. His pacemaker was interrogated. I set his lower rate to 35. He did have an underlying escape rhythm in the 30s-40s, but would still intermittently pace. I made some programming changes, decreased his lower pacing rate to 55 and increased his AV delays to see if he will conduct. ASSESSMENT: 1. Pacemaker infection. 2. Complete heart block. 3. Prior B cell lymphoma. 4. Chronic renal insufficiency. 5. Left-sided port with no signs of infection. PLAN: The patient will be admitted to the hospital. We will obtain blood cultures and tissue cultures and start him on empiric antibiotics with the assistance of an Infectious Disease consultation. We discussed that we will need to remove his right-sided device and reimplant on the left side once cultures are completed. Once the blood cultures have returned, we will discuss re-implanting the device on the left side. I will remove his port at that time as well. By: [id number] Kiran Mendez MD /nt
--- NOTE | ~2017-10-19 | HC ---
[facility] [place] [address] CONSULTATION Name: JOSÉ LUIS SALAMANCA Room #: 206-P [facility] IN ..#: [id number] Admission: 10/19/17 Attend Phys: Kiran Mendez MD Discharge: Date of : 35 Report #: [id number] THIS REPORT FOR: //name// CC: Kiran Mendez Epifanio Lezama DATE OF SERVICE: 10/21/2017 CHIEF COMPLAINT: Infected pacemaker site. HISTORY OF PRESENT ILLNESS: This is an 82-year-old male patient who has been admitted with an infection around pacemaker site in his right chest wall. He is scheduled to undergo replacement with a new pacemaker on the left side and removal of the right-sided pacemaker and the leads. I have been asked to see him with regard to the management of the surgical wound postoperatively. The patient has no specific complaint at this time. PAST MEDICAL HISTORY: Positive history of symptomatic bradycardia with sick sinus syndrome and heart block. His right-sided pacemaker implantation was on 09/24/2017. He has a history of B-cell lymphoma, status post chemotherapy in the past, history of atrial fibrillation, abdominal aortic aneurysm, chronic renal insufficiency. SOCIAL HISTORY: Negative for alcohol or tobacco use. FAMILY HISTORY: Noncontributory. ALLERGIES: None. MEDICATIONS: Have been reviewed. REVIEW OF SYSTEMS: A 14-point review of systems is negative other than the history of present illness. PHYSICAL EXAMINATION: VITAL SIGNS: At this time include pulse 59, respirations of 20, blood pressure 162/100, temperature 97.8. GENERAL: He is a chronically ill-appearing male patient who appears to be in mental stress. HEENT: Head normocephalic. Nose and throat clear. NECK: Supple. LUNGS: Clear. HEART: Regular, without murmur. CHEST: Chest wall demonstrates what appears to be a slightly and slightly draining pacemaker site on the right side. ABDOMEN: Soft, nontender. [facility] [address] [place] [address] CONSULTATION Name: JOSÉ LUIS SALAMANCA Room #: 206-P [facility] IN [facility]#: [id number] Admission: 10/19/17 Attend Phys: Kiran Mendez MD Discharge: Date of : 35 Report #: [id number] NEUROLOGIC: The patient is alert and oriented and appropriate. LABORATORY DATA: Includes sodium 144, potassium 3.2, chloride 110, CO2 of 25, BUN 23, creatinine 1.3, total protein 6.2, albumin 3.4. CLINICAL IMPRESSION: Infected pacemaker site, pending removal. RECOMMENDATIONS: At this point in time, the patient will likely be discharged home after his procedure tomorrow. We will order a wound VAC. He may require a moist gauze dressing for a couple of days while we get approval for the wound VAC. I think a wound VAC would be most appropriate and offer the best and quickest means to healing this area. All questions have been answered. I appreciate being asked to see him in consultation. <ELECTRONICALLY SIGNED> By: Ayaz Xiong MD 10/21/17 2330 2300 2325 Ayaz Xiong MD /nt
--- NOTE | ~2017-10-19 | D ---
[facility] [place] [address] DISCHARGE SUMMARY Name: JOSÉ LUIS SALAMANCA Room #: 206-P [facility] IN M.R.#: [id number] Admission: 10/19/17 Attend Phys: Kiran Mendez MD Discharge: 10/23/17 Date of : 35 Report #: [id number] THIS REPORT FOR: //name// CC: Kiran Mendezuriel Bertrandon DATE OF SERVICE: 10/23/2017 ADMITTING DIAGNOSIS: Pacemaker pocket infection. DISCHARGE DIAGNOSES: 1. Pacemaker pocket infection. 2. Hypertension. 3. ____ complete heart block, symptomatic. 4. Chronic pain. FOLLOW UP: Dr. Mendez in 1 week. PROCEDURES PERFORMED: 1. Removal of infected right-sided dual chamber pacing system. 2. Insertion of a new dual-chamber left-sided pacing system. DISCHARGE MEDICATIONS: Potassium chloride, minocycline, torsemide, ____, Proscar, Avapro, Desyrel, Voltaren gel, hydrocodone and Zanaflex. BRIEF CLINICAL HISTORY: See history and physical in chart. HOSPITAL COURSE: The patient was admitted to the hospital and underwent uncomplicated excision of an infected right-sided dual chamber pacing system. Subsequent to this was removed and antibiotic solution irrigated. Wound Clinic was consulted for wound care. The device was removed and a new device was inserted in the left subclavian region by Dr. Mendez without issues or complications. Post-procedure, the patient did quite well, but had not been on his ARB and had issues with potassium in the past and therefore was monitored one more day prior to discharge. He is being discharged in improved and stable condition to follow up with the previously stated discharge instructions and medications. <ELECTRONICALLY SIGNED> By: Edwin Conley MD 10/25/17 1108 1223 1250 Edwin Conley MD /nt
[~2017-10-19 11:50] MED LIST changes: +DEMADEX20 MG PO
[2017-10-19 12:26] VITALS: BP 140/82
[2017-10-19 12:37] LABS: ABSOLUTE NEUTROPHILS 4.6 thou/uL (1.4-8.2); BASOPHILS 0.4 % (0.0-2.0); EOSINOPHILS 1.9 % (0.0-3.0); HEMATOCRIT 40.6 % (42.0-52.0); HEMOGLOBIN 13.7 gm/dL (14.0-18.0); LYMPHOCYTES 14.2 % (24.0-44.0); MCH 29.5 pg (26.0-34.0); MCHC 33.8 g/dL (28.0-37.0); MCV 87.3 fL (80.0-100.0); MONOCYTES 7.7 % (1.0-8.0); PLATELET COUNT 148 thou/uL (150-400); POLYS 75.8 % (36.0-66.0); RBC 4.65 mil/uL (4.50-6.00); RDW 15.7 % (10.5-14.5); WBC 6.1 thou/uL (4.0-11.0)
[2017-10-19 12:47] LABS: ANION GAP 12 mmol/L (7-16); BUN 21 mg/dL (7-18); CALCIUM 8.9 mg/dL (8.5-10.1); CHLORIDE 108 mmol/L (98-107); CO2 23 mmol/L (21-32); CREATININE 1.3 mg/dL (0.7-1.3); GLUCOSE 101 mg/dL (74-106); POTASSIUM 3.1 mmol/L (3.5-5.1); SODIUM 143 mmol/L (136-145)
[2017-10-19 12:53] LABS: ALBUMIN 3.4 g/dL (3.4-5.0); SGOT 17 U/L (15-37); SGPT 33 U/L (30-65); TOTAL BILIRUBIN 0.7 mg/dL (<0.1-1.0); TOTAL PROTEIN 6.2 g/dL (6.4-8.2)
[2017-10-19 15:26] VITALS: BP 156/88
[2017-10-19 22:11] VITALS: BP 150/86
[2017-10-20 04:41] VITALS: BP 146/88
[2017-10-20 08:10] VITALS: BP 151/92
[2017-10-20 08:10] LABS: ABSOLUTE NEUTROPHILS 4.3 thou/uL (1.4-8.2); BASOPHILS 0.7 % (0.0-2.0); EOSINOPHILS 2.1 % (0.0-3.0); HEMATOCRIT 41.2 % (42.0-52.0); HEMOGLOBIN 13.8 gm/dL (14.0-18.0); LYMPHOCYTES 14.4 % (24.0-44.0); MCH 29.3 pg (26.0-34.0); MCHC 33.5 g/dL (28.0-37.0); MCV 87.5 fL (80.0-100.0); MONOCYTES 9.2 % (1.0-8.0); PLATELET COUNT 133 thou/uL (150-400); POLYS 73.6 % (36.0-66.0); RBC 4.71 mil/uL (4.50-6.00); RDW 16.8 % (10.5-14.5); WBC 5.8 thou/uL (4.0-11.0)
[2017-10-20 08:17] LABS: CALCIUM 8.5 mg/dL (8.5-10.1); CREATININE 1.2 mg/dL (0.7-1.3); POTASSIUM 3.1 mmol/L (3.5-5.1)
[2017-10-20 11:40] VITALS: BP 142/85
[2017-10-20 15:45] VITALS: BP 147/100
[2017-10-20 19:25] VITALS: BP 153/97
[2017-10-21 03:46] VITALS: BP 139/100
[2017-10-21 07:25] VITALS: BP 147/92
[2017-10-21 08:14] LABS: ABSOLUTE NEUTROPHILS 4.3 thou/uL (1.4-8.2); BASOPHILS 0.6 % (0.0-2.0); EOSINOPHILS 2.5 % (0.0-3.0); HEMOGLOBIN 13.2 gm/dL (14.0-18.0); LYMPHOCYTES 16.9 % (24.0-44.0); MCH 29.1 pg (26.0-34.0); MCHC 33.1 g/dL (28.0-37.0); MONOCYTES 9.5 % (1.0-8.0); PLATELET COUNT 136 thou/uL (150-400); POLYS 70.5 % (36.0-66.0); RBC 4.55 mil/uL (4.50-6.00); RDW 16.3 % (10.5-14.5); WBC 6.1 thou/uL (4.0-11.0)
[2017-10-21 08:26] LABS: CALCIUM 8.6 mg/dL (8.5-10.1); CREATININE 1.3 mg/dL (0.7-1.3); POTASSIUM 3.2 mmol/L (3.5-5.1)
[2017-10-21 10:27] VITALS: BP 147/92
[2017-10-21 17:10] VITALS: BP 172/101
[2017-10-21 19:30] VITALS: BP 162/100
[2017-10-21 23:45] VITALS: BP 154/95
[2017-10-22 04:03] VITALS: BP 144/86
[2017-10-22 07:30] VITALS: BP 166/96
[2017-10-22] MEDS ORDERED: MINOCIN100 MG PO (09:08)
[2017-10-22] MEDS ORDERED: POTASSIUM20 PO (09:08)
[2017-10-22 11:50] VITALS: BP 150/92
[2017-10-22 15:25] VITALS: BP 136/80
[2017-10-22 19:39] VITALS: BP 144/89
[2017-10-23 05:15] VITALS: BP 150/86
[2017-10-23 07:15] VITALS: BP 050/84
[2017-10-23 11:22] LABS: POTASSIUM 3.5 mmol/L (3.5-5.1)
[2017-10-23 11:45] VITALS: BP 155/90
[2017-10-23 13:24] VITALS: BP 147/92
== END 2017-10-23 17:33 | disposition home health service (06) | DRG 243 ==
LOC: 2N 11:50
PROVIDERS: Internal Medicine; Internal Medicine Cardiovascular Disease; Nurse Practitioner Gerontology
PROC: 02HK3JZ Insertion of Pacemaker Lead into Right Ventricle, Percutaneous Approach (ICD-10-PCS; principal; 2017-10-21)
PROC: 02H63JZ Insertion of Pacemaker Lead into Right Atrium, Percutaneous Approach (ICD-10-PCS; principal; 2017-10-21)
PROC: 02PA3MZ Removal of Cardiac Lead from Heart, Percutaneous Approach (ICD-10-PCS; principal; 2017-10-21)
PROC: 0JPT0PZ Removal of Cardiac Rhythm Related Device from Trunk Subcutaneous Tissue and Fascia, Open Approach (ICD-10-PCS; principal; 2017-10-21)
PROC: 0JH606Z Insertion of Pacemaker, Dual Chamber into Chest Subcutaneous Tissue and Fascia, Open Approach (ICD-10-PCS; principal; 2017-10-21)
DX: T82.7XXA Infection and inflammatory reaction due to other cardiac and vascular devices, implants and grafts, initial encounter (principal); I44.2 Atrioventricular block, complete; E87.6 Hypokalemia; I12.9 Hypertensive chronic kidney disease with stage 1 through stage 4 chronic kidney disease, or unspecified chronic kidney disease; N18.9 Chronic kidney disease, unspecified; I71.4 Abdominal aortic aneurysm, without rupture; G89.29 Other chronic pain; M19.90 Unspecified osteoarthritis, unspecified site; E66.9 Obesity, unspecified; I48.91 Unspecified atrial fibrillation; D64.9 Anemia, unspecified; Y83.8 Other surgical procedures as the cause of abnormal reaction of the patient, or of later complication, without mention of misadventure at the time of the procedure; Y92.89 Other specified places as the place of occurrence of the external cause; Z68.33 Body mass index [BMI] 33.0-33.9, adult; Z79.2 Long term (current) use of antibiotics; Z79.899 Other long term (current) drug therapy; Z85.72 Personal history of non-Hodgkin lymphomas; Z79.01 Long term (current) use of anticoagulants; Z90.49 Acquired absence of other specified parts of digestive tract
CPT/HCPCS: 10797; 62110; 62900; 70005

== ENCOUNTER 2017-10-23 18:41 | Emergency (ER) | payer OTHER, BC ==
[~2017-10-23] VITALS: Ht 180.3 cm; Wt 107.5 kg
[~2017-10-23 18:41] MED LIST changes: +MINOCIN100 MG PO; +POTASSIUM20 PO
== END 2017-10-23 19:49 | disposition home or self-care (01) ==
LOC: ER 18:41
DX: T82.837A Hemorrhage due to cardiac prosthetic devices, implants and grafts, initial encounter (principal); Z48.01 Encounter for change or removal of surgical wound dressing; I10 Essential (primary) hypertension; M19.90 Unspecified osteoarthritis, unspecified site; G89.29 Other chronic pain; Z90.89 Acquired absence of other organs; Z90.49 Acquired absence of other specified parts of digestive tract; Z85.72 Personal history of non-Hodgkin lymphomas

== ENCOUNTER → 2017-11-01 | Outpatient (CLI) | payer OTHER, BC | LOC: HYPER 10-26 12:27 | DX: T81.4XXD Infection following a procedure, subsequent encounter (principal); I89.0 Lymphedema, not elsewhere classified; L76.22 Postprocedural hemorrhage of skin and subcutaneous tissue following other procedure; Z87.891 Personal history of nicotine dependence; Z95.0 Presence of cardiac pacemaker; Y83.8 Other surgical procedures as the cause of abnormal reaction of the patient, or of later complication, without mention of misadventure at the time of the procedure ==

== ENCOUNTER → 2017-11-08 | Outpatient (CLI) | payer OTHER, BC | LOC: HYPER 06:35 | DX: T81.4XXD Infection following a procedure, subsequent encounter (principal); I89.0 Lymphedema, not elsewhere classified; L03.313 Cellulitis of chest wall; Z95.0 Presence of cardiac pacemaker; Z87.891 Personal history of nicotine dependence; Y83.8 Other surgical procedures as the cause of abnormal reaction of the patient, or of later complication, without mention of misadventure at the time of the procedure ==

== ENCOUNTER → 2017-11-24 | Outpatient (CLI) | payer OTHER, BC ==
[~2017-11-24] VITALS: Ht 182.9 cm; Wt 107.3 kg
[~2017-11-24] MED LIST changes: +EDARBYCLOR 40-1 EACH PO; +HYDROCODON-ACE1 EAC5 PO
--- NOTE | ~2017-11-24 | HPC ---
[facility] [place] [address] PAIN MANAGEMENT CONSULTATION Name: JOSÉ LUIS SALAMANCA Room #: REG [facility].#: [id number] Admission: 11/24/17 Attend Phys: Jacky Sanchez MD Discharge: Date of : 35 Report #: [id number] THIS REPORT FOR: //name// CC: Epifanio Sanchez DATE OF SERVICE: 11/24/2017 Followup visit for chronic low back pain with spondylosis and osteoarthritis, bilateral shoulders and knees. The patient is a patient of our clinic who has been seeing Dr. Joce Mason for over 1 year for chronic pain issues. He receives hydrocodone 10/325 four tablets per day, which has been very helpful in providing relief of his chronic aches and pains. He is able to function much better throughout the day with standing, weightbearing and activities, both in and outside of the house. He continues to drive a car. He denies constipation or any cognitive side effects from his medication. He safeguards his medications carefully under terms of his written agreement with Dr. Mason. He has several comorbidities outlined in Dr. Mason's chart including lymphoma and a history of DVT. He has been on blood thinners, but developed hematochezia and was taken off of Eliquis. He lives alone. He was about 20 years ago. He worked previously for the [employer]. He denies use of tobacco or alcohol. He has a social group of friends and occasionally gets out with them. He attends 2 separate churches, [employer] in [place] and also, he goes to [employer] [facility]. He enjoys listening the [employer] talk radio where he gets most of his political opinions. PHYSICAL EXAMINATION: He is a very gentle soft spoken fellow. He seems sharp and intact with no obvious memory loss. He is oriented to person, place and time x 3. He is able to get up and down from a chair without much difficulty. He has marked tenderness in the shoulders with pain and internal and external rotation. There is some pain across his low back and he has tenderness bilaterally in the hips. Left knee is more bothersome today than it has been in the past. He is able to manage this also with medication, however. IMPRESSION: 1. Chronic intractable pain with degenerative conditions including osteoarthritis of shoulders, hips and knees. 2. Lumbar spondylosis. [facility] [address] [place] [address] PAIN MANAGEMENT CONSULTATION Name: JOSÉ LUIS SALAMANCA Room #: REG [facility]#: [id number] Admission: 11/24/17 Attend Phys: Jacky Sanchez MD Discharge: Date of : 35 Report #: [id number] 3. Hypertension. 4. History of upper gastrointestinal bleed. 5. Management of high risk medications. PLAN: I renewed his hydrocodone for him and also given him tizanidine, which he uses as a sleeping aid when his muscle spasms are severe. He has no significant side effects from this medication either. A followup visit is scheduled in our pain clinic in 2 months. I have told him that if he would like, Dr. Lezama may be willing to provide these medicines for him outside of our clinic. He is informed that he would just assume continue seeing us here at the Pain Clinic. We will closely monitor his medications per our opioid prescribing program. By: 1248 [id number] Jacky Sanchez MD /nt
[2017-11-24 10:51] VITALS: BP 122/68
== END ==
LOC: PAIN 07:28
DX: M47.816 Spondylosis without myelopathy or radiculopathy, lumbar region (principal); I10 Essential (primary) hypertension; M17.0 Bilateral primary osteoarthritis of knee; M16.0 Bilateral primary osteoarthritis of hip; M19.012 Primary osteoarthritis, left shoulder; M19.011 Primary osteoarthritis, right shoulder; Z79.899 Other long term (current) drug therapy

== ENCOUNTER → 2018-01-03 | Outpatient (CLI) | payer OTHER, BC | LOC: HYPER 07:07 | DX: T81.49XD Infection following a procedure, other surgical site, subsequent encounter (principal); L76.22 Postprocedural hemorrhage of skin and subcutaneous tissue following other procedure; L03.313 Cellulitis of chest wall; I89.0 Lymphedema, not elsewhere classified; I48.0 Paroxysmal atrial fibrillation; M19.90 Unspecified osteoarthritis, unspecified site; N18.9 Chronic kidney disease, unspecified; Z87.891 Personal history of nicotine dependence; Z95.0 Presence of cardiac pacemaker; Y83.8 Other surgical procedures as the cause of abnormal reaction of the patient, or of later complication, without mention of misadventure at the time of the procedure ==

== ENCOUNTER → 2018-01-18 | Outpatient (CLI) | payer OTHER, BC ==
[~2018-01-18] VITALS: Ht 182.9 cm; Wt 107.2 kg
--- NOTE | ~2018-01-18 | HPC ---
[facility] [address] [place] [address] PAIN MANAGEMENT CONSULTATION Name: JOSÉ LUIS SALAMANCA Room #: REG [facility] Shahida#: [id number] Admission: 01/18/18 Attend Phys: Adriane Yang Discharge: Date of : 35 Report #: [id number] THIS REPORT FOR: //name// CC: Adriane Sanchez MD DATE OF SERVICE: 01/18/2018 The patient was seen for followup visit for chronic low back pain with spondylosis and osteoarthritis pain in the bilateral shoulders and knees. HISTORY OF PRESENT ILLNESS: The patient is a patient in our clinic that was previously seen by Dr. Joce Mason and seen recently by Dr. Jacky Sanchez. He states that he has low back pain and bilateral shoulder pain. He also tells me today that his left arm is beginning to hurt, which is new in the last 2 months with numbness and tingling radiating down his arms into his thumb and first three fingers. He states his pain score today is a 2/10 with his medications. He tells me that he was doing physical therapy for his right shoulder since he had had a rotator cuff replaced and has recently finished that and no longer doing his exercises for his arms at home. ALLERGIES: No known drug allergies. MEDICATIONS: Bystolic 10 mg once a day, tizanidine 4 mg as needed, hydrocodone 10/325, Bystolic 5 mg, Edarbyclor 40/12.5 once a day, Voltaren gel, trazodone 50 mg at bedtime, Proscar 5 mg once a day, lysine tablet a day and Flomax 0.4 tablets a day. PQRS: 1. The patient has a history of osteoarthritis in his back, shoulders and lower extremities. Denies rheumatoid arthritis. 2. Height 6 feet 0, weight 236, BMI is 32.1. 3. Vital signs 104/60, pulse is 60, respirations 20, oxygen sat is 96. 4. Pain intensity is 2/10 with pain medicines. 5. Fall risk: He denies dizziness. Denies needing help walking or standing and denies that he has fallen in the last 3 months. 6. The patient is on no blood thinners. 7. He does have a history of hypertension. 6. Opioid therapy greater than 6 weeks. Therefore, he has opioid signed contract on the chart. 8. The patient's risk assessment tool is low and his functional assessment is 24/70. 9. The patient denies any recreational drug use. States that he has never smoked tobacco and he does not drink alcohol. [address] [address] PAIN MANAGEMENT CONSULTATION Name: JOSÉ LUIS SALAMANCA Room #: REG [facility]#: [id number] Admission: 01/18/18 Attend Phys: Adriane Yang Discharge: Date of : 35 Report #: [id number] [facility] PDMP were checked with no aberrant behavior noted. Dr. Jacky Sanchez and previously Dr. Joce Mason were his only narcotic providers. PHYSICAL EXAMINATION: The patient is an alert and orientated 82-year-old. He is alert and oriented with no obvious memory loss. He was able to get up and down from a chair without difficulty. He has tenderness one specific spot on the right side and generalized discomfort on the left and numbness and tingling in his outer aspect of his left arm, then has numbness in his thumb and middle fingers. He states that this is worse with movement and lying down on it. The patient's left knee is bothersome too, but he said his most discomfort today is in his shoulder and arm. IMPRESSION: 1. Chronic intractable pain with degenerative conditions including osteoarthritis of his shoulders, hips and knees, lumbar spondylosis. 2. Hypertension. 3. History of upper gastrointestinal bleed. 4. Management of high risk medications. We reviewed the fact that opiate medications are being used to provide analgesia adequate to support activities of daily living, not attempting to achieve a specific pain score on the 0-10 Visual Analog Scale. The current opiate medications are providing sufficient analgesia to allow the patient to participate in activities of daily living. The patient is not exhibiting any aberrant behavior suggestive of drug diversion. The patient is not having any adverse reactions to medications. The patient is not suffering from daytime somnolence or mental acuity changes. The patient is managing opiate-induced constipation with appropriate [id number] agents and dietary considerations. The patient was counseled on concern for caution with operating a motor vehicle while using opiate medications. A physical exam was performed and the patient's functional status was evaluated. All patients with back pain were advised against the bed rest greater than 4 days and were advised to return to normal activities. Pain score assessment was noted and the treatment plan was reviewed with the patient. All current medications, both prescribed and OTC were reviewed and reconciled on the electronic medical record. Tobacco screening was accomplished and smoking cessation was advised when indicated. BMI was noted and diet/exercise modification was recommended for all patients following outside normal parameters. I reviewed with the patient today their responsibilities to safeguard prescription medications, reviewed their responsibility to utilize medications only as prescribed by the physician. They are to seek and receive pain [address] [address] PAIN MANAGEMENT CONSULTATION Name: JOSÉ LUIS SALAAMNCA Room #: REG [facility]#: [id number] Admission: 01/18/18 Attend Phys: Adriane Yang Discharge: Date of : 35 Report #: [id number] medications only from 1 physician group ( [facility]). They are to use 1 pharmacy and keep the clinic informed if they change pharmacies. Their responsibilities include making followup visits in a timely fashion and to avoid abrupt discontinuation of medication usage. Their responsibilities further include bringing their medications (bottles from the pharmacy with residual pills) to the visit for possible confirmation of pill counts and the patient understands it is their responsibility to submit to random drug screens to ensure both that the medications prescribed are present, and that no other controlled substances are present. All prescriptions provided today were generated electronically. PLAN: 1. The patient and I discussed many options today for his left arm numbness and tingling. First may be to continue physical therapy since he had stopped his exercises at home after he finished going to the Physical Therapy Department. Second option would be for a possible MRI of his neck to see causes for his radiculopathy or possible injection was also discussed. 2. The patient decided to restart his therapy at home. He is aware of what exercises he needs to be done and he would rather do them at home than go to a clinic to have this done. He has decided to wait for now on an MRI to see if the therapy helps and if he needs to, he may call for an appointment for an epidural with Dr. Jacky Sanchez. 3. The patient was given a refill of his diclofenac 2 g two tubes of this to use on his upper extremities. The patient was also given hydrocodone 10/325 one p.o. q.i.d., #120 with today and 4-week release for him to use for the next 2 months. The patient will call for a followup appointment as needed and this will either be for medication management refills or for a possible injection from Dr. Jacky Sanchez. 4. The patient seen in collaboration today with Dr. Otilio Mason. <ELECTRONICALLY SIGNED> By: Adriane Yang 01/19/18 0726 1428 0357 Adriane Yang /nt
[2018-01-18 11:03] VITALS: BP 104/60
== END ==
LOC: PAIN 06:59
DX: M47.816 Spondylosis without myelopathy or radiculopathy, lumbar region (principal); M17.0 Bilateral primary osteoarthritis of knee; M19.012 Primary osteoarthritis, left shoulder; M19.011 Primary osteoarthritis, right shoulder; M16.0 Bilateral primary osteoarthritis of hip; G89.4 Chronic pain syndrome; I10 Essential (primary) hypertension; Z79.899 Other long term (current) drug therapy; Z87.19 Personal history of other diseases of the digestive system

== ENCOUNTER → 2018-03-21 | Outpatient (CLI) | payer OTHER, BC ==
[~2018-03-21] VITALS: Ht 182.9 cm; Wt 112.7 kg
[~2018-03-21] MED LIST changes: +BYSTOLIC20 MG PO
--- NOTE | ~2018-03-21 | HPC ---
[facility] [address] [place] [address] PAIN MANAGEMENT CONSULTATION Name: JOSÉ LUIS SALAMANCA Room #: REG [facility] Shahida#: [id number] Admission: 03/21/18 Attend Phys: Adriane Yang Discharge: Date of : 35 Report #: [id number] THIS REPORT FOR: //name// CC: Adriane Lezama DATE OF SERVICE: 03/21/2018 CHIEF COMPLAINT: Chronic low back pain with spondylosis and osteoarthritis. HISTORY OF PRESENT ILLNESS: The patient returns to the pain clinic today for a refill of his medications. He tells me that he has been doing quite well with his current regimen. He is placing his pain score today at 2/10, tells me the most significant pain that he is having is some numbness in his left hand. He tells me that he does have ongoing low back pain, neck pain and left arm and shoulder pain, but today, it is numbness and tingly in his hand, worse with moving his arms, medication and lying down is very helpful. He tells me he denies any constipation. He has had some diarrhea lately that is being treated by Dr. Lezama. The patient tells me that he has run out of his tizanidine that he uses at night with sleep. He finds that is very beneficial. CURRENT ALLERGIES: No known drug allergies. MEDICINES: Bystolic 20 mg daily, diclofenac gel to upper extremities, tizanidine 4 mg 1-2 at bedtime, hydrocodone 10/325 up to 4 times a day, trazodone 50 mg at bedtime, Proscar 5 mg daily, lysine 500 mg daily, Flomax 0.4 mg daily. PQRS: He has a history of osteoarthritis in his back, shoulders and lower extremities. Denies rheumatoid arthritis. Height is 6 feet 0 inch, weight is 248 pounds, BMI is 33. Vital signs: Blood pressure 111/66, pulse is 61, respirations 20, oxygen sat is 100. Pain score is 2/10. Dizziness, he denies. He does not need help walking or standing. He has not fallen in the last 3 months. The patient is not on a blood thinner, but does take antihypertensive medicines. His opioid therapy is greater than 6 weeks; therefore, an opioid signed contract is on the chart. His risk assessment tool is low and his functional assessment is 13/70. The patient denies recreational drug use, does not smoke and does not drink alcohol. We did check the prescription monitoring system. The patient is filling appropriately, doctors from our clinic. No aberrant behavior. He tells me that he does safeguard his medications and there is a drug screen on the chart. PHYSICAL EXAMINATION: GENERAL: This is alert and oriented 82-year-old gentleman who appears his stated age. His affect is appropriate. HEENT: Normocephalic, atraumatic. Extraocular eye muscles are intact. [address] [address] PAIN MANAGEMENT CONSULTATION Name: JOSÉ LUIS SALAMANCA Room #: REG [facility] Pinedo#: [id number] Admission: 03/21/18 Attend Phys: Adriane Yang Discharge: Date of : 35 Report #: [id number] membranes are moist and hearing is adequate. NECK: No JVD or adenopathy. Limited range of motion in his left shoulder, numbness and tingling in his left hand. MUSCULOSKELETAL: He is able to rise from chair from sitting to standing without difficulty. The patient tells me that his left shoulder has limited range of motion. The patient is able to move, extend up to alf to his head. Major muscle group strength is judged to be 5/5 symmetrically in lower extremities. ASSESSMENT: 1. Chronic intractable pain with degenerative conditions including osteoarthritis in his shoulder, hips and knees. 2. Lumbar spondylosis. 3. Hypertension. 4. History of upper gastrointestinal bleed. 5. Management of high-risk medications. We reviewed the fact that opiate medications are being used to provide analgesia adequate to support activities of daily living, not attempting to achieve a specific pain score on the 0-10 Visual Analog Scale. The current opiate medications are providing sufficient analgesia to allow the patient to participate in activities of daily living. The patient is not exhibiting any aberrant behavior suggestive of drug diversion. The patient is not having any adverse reactions to medications. The patient is not suffering from daytime somnolence or mental acuity changes. The patient is managing opiate-induced constipation with appropriate wrok-vkv-xdidjro agents and dietary considerations. The patient was counseled on concern for caution with operating a motor vehicle while using opiate medications. A physical exam was performed and the patient's functional status was evaluated. All patients with back pain were advised against the bed rest greater than 4 days and were advised to return to normal activities. Pain score assessment was noted and the treatment plan was reviewed with the patient. All current medications, both prescribed and OTC were reviewed and reconciled on the electronic medical record. Tobacco screening was accomplished and smoking cessation was advised when indicated. BMI was noted and diet/exercise modification was recommended for all patients following outside normal parameters. I reviewed with the patient today their responsibilities to safeguard prescription medications, reviewed their responsibility to utilize medications only as prescribed by the physician. They are to seek and receive pain medications only from 1 physician group ( [facility]). They are to use 1 pharmacy and keep the clinic informed if they change pharmacies. Their responsibilities include making followup visits in a timely fashion and to avoid abrupt discontinuation of medication usage. Their responsibilities further include bringing their medications (bottles from the pharmacy with residual [facility] [address] [place] [address] PAIN MANAGEMENT CONSULTATION Name: JOSÉ LUIS SALAMANCA [id number] Admission: 03/21/18 Attend Phys: Adriane Yang Discharge: Date of : 35 Report #: [id number] pills) to the visit for possible confirmation of pill counts and the patient understands it is their responsibility to submit to random drug screens to ensure both that the medications prescribed are present, and that no other controlled substances are present. All prescriptions provided today were generated electronically. PLAN: I have reviewed the patient's treatment options today with him. He tells me he continues to have ongoing left arm numbness and tingling. At this time, we discussed neck injections and cervical injections again by Dr. Jacky Sanchez. He tells me that he is not wanting to do injections yet. He will continue on his medications. I did encourage the patient to do his physical therapy at home that helps with his shoulder and his arm. The patient tells me he just needs to find time to do this. Refills of medication today for hydrocodone 10/325, #120 to be released today and 4-week, his tizanidine 4 mg 1-2 tablets at bedtime, #45 with 1 additional refill were also given. The patient is seen today under the care of collaboration with Dr. Otilio Mason. He will return to the pain clinic in 2 months for medications. <ELECTRONICALLY SIGNED> By: Adriane Yang 03/22/18 0716 [id number] Adriane Yang /nt
[2018-03-21 08:43] VITALS: BP 111/66
== END ==
LOC: PAIN 08:28
DX: M47.896 Other spondylosis, lumbar region (principal); G89.4 Chronic pain syndrome; M17.0 Bilateral primary osteoarthritis of knee; M19.012 Primary osteoarthritis, left shoulder; M19.011 Primary osteoarthritis, right shoulder; M16.0 Bilateral primary osteoarthritis of hip; I10 Essential (primary) hypertension; K92.2 Gastrointestinal hemorrhage, unspecified; Z79.899 Other long term (current) drug therapy

== ENCOUNTER → 2018-05-22 | Outpatient (CLI) | payer OTHER, BC ==
[~2018-05-22] VITALS: Ht 182.9 cm; Wt 108.0 kg
--- NOTE | ~2018-05-22 | HPC ---
[facility] [address] [place] [address] PAIN MANAGEMENT CONSULTATION Name: JOSÉ LUIS SALAMANCA Room #: REG [facility].#: [id number] Admission: 05/22/18 ������������������ Attend Phys: Jacky Sanchez MD Discharge: ������������������ Date of : 35 Report #: [id number] THIS REPORT FOR: //name// CC: Epifanio Sanchez DATE OF SERVICE: 05/22/2018 The patient returns to pain clinic today in followup for medication management. He is taking hydrocodone 10/325 four times daily. He has a longstanding history of osteoarthritis involving shoulders, hips, knees. Pain has been helped by his medication with few side effects. He has had no unexpected entries on the [employer] monitoring. Today, he reports that he has seen a neurologist at . He has been diagnosed with carpal tunnel syndrome. He denies any neck pain or arm pain. He reports that Zanaflex seems to cause bright red blood in his stool. This is unusual for Zanaflex, we discussed that as an characteristic side effect. He is not taking any anti-inflammatory at this time. PAST MEDICAL HISTORY: Significant for hypertension, benign prostatic hypertrophy, hyperparathyroidism with parathyroid resection years ago at [facility]. MEDICATIONS: Reviewed and reconciled. We provide him medication under terms of written opioid agreement. We have checked his prescriptions under the [employer] prescription drug monitoring program and there are no unexpected entries. PHYSICAL EXAMINATION: Pleasant 83-year-old, somewhat anxious. Blood pressure 114/64, heart rate 63, respirations 20. He is 6 feet tall with a BMI of 32.3. Examination of the neck reveals mild pain with flexion, extension and rotation. Upper extremity strength is adequate. He has some diminished natural fabricator strength bilaterally. Numbness is noted in the median nerve distribution. He complains of pain across his lumbosacral segment. IMPRESSION: 1. Chronic intractable back pain with spondylosis. 2. Osteoarthritis, hips, shoulders, knees. 3. Carpal tunnel syndrome. 4. Hypertension. RECOMMENDATIONS: 1. Discontinue tizanidine. 2. Continue hydrocodone 10/325 one tablet 4 times daily as needed for severe [facility] [address] [place] [address] PAIN MANAGEMENT CONSULTATION Name: JOSÉ LUIS SALAMANCA Room #: REG [facility] Marycruz.#: [id number] Admission: 05/22/18 ������������������ Attend Phys: Jacky Sanchez MD Discharge: ������������������ Date of : 35 Report #: [id number] pain. 3. Follow up in the pain clinic in 3 months. Safeguard all medications as discussed in his written opioid agreement. ��������������������������������������������� ���������������������������������������� By: ��������������������������������������������� 1543 1622 Jacky Sanchez MD /nt
[2018-05-22 09:32] VITALS: BP 114/64
--- NOTE | 2018-05-22 09:48 | NUR ---
Pain Clinic Assessment: 1. History of Osteoarthritis: BACK History of Rheumatoid Arthritis: Not Applicable 2. Height: 6 ft. 0 in. 182.9 cm. Weight: 238.2 lb. oz. 108.047 kg. Patient's BMI: 32.3 3. Vital Signs: BP: 114/64 Pulse: 63 Resp: 20 Temp: 02 Sat: 97 ECG Mon: 4. Pain Intensity: 2 5. Fall Risk: Dizziness: N Needs help standing or walking: N Fallen in the last 3 months: Y Fall risk comments: 6. Patient on Blood Thinner: None 7. History of Hypertension: Y 8. Opioid Therapy greater than 6 weeks: Y Opiate Contract Signed: 12/26/15 9. Risk Assessment Tool Provided: LOW RISK 0 10. Functional Assessment Tool: 11. Recreational Drug Use: Never Drug Type: Tobacco Use: Never Smoker Tobacco Type: Amount or Packs/day: How Many Years: Alcohol Use: No Frequency: Quant:
== END ==
LOC: PAIN 06:58
DX: G89.4 Chronic pain syndrome (principal); M16.0 Bilateral primary osteoarthritis of hip; M17.0 Bilateral primary osteoarthritis of knee; M19.012 Primary osteoarthritis, left shoulder; M19.011 Primary osteoarthritis, right shoulder; I10 Essential (primary) hypertension; M47.896 Other spondylosis, lumbar region; G56.01 Carpal tunnel syndrome, right upper limb; Z79.899 Other long term (current) drug therapy

== ENCOUNTER → 2018-06-23 | Outpatient (CLI) | payer OTHER, BC ==
[~2018-06-23] VITALS: Ht 182.9 cm; Wt 108.0 kg
[2018-06-23 11:35] VITALS: BP 158/97
--- NOTE | 2018-06-23 11:38 | NUR ---
Pain Clinic Assessment: 1. History of Osteoarthritis: BACK History of Rheumatoid Arthritis: Not Applicable 2. Height: 6 ft. 0 in. 182.9 cm. Weight: 238.0 lb. oz. 107.956 kg. Patient's BMI: 32.3 3. Vital Signs: BP: 158/97 Pulse: 66 Resp: 16 Temp: 02 Sat: 96 ECG Mon: 4. Pain Intensity: 3-4 5. Fall Risk: Dizziness: N Needs help standing or walking: N Fallen in the last 3 months: N Fall risk comments: 6. Patient on Blood Thinner: None 7. History of Hypertension: Y 8. Opioid Therapy greater than 6 weeks: Y Opiate Contract Signed: 12/26/15 9. Risk Assessment Tool Provided: LOW RISK 0 10. Functional Assessment Tool: 11. Recreational Drug Use: Never Drug Type: Tobacco Use: Never Smoker Tobacco Type: Amount or Packs/day: How Many Years: Alcohol Use: No Frequency: Quant:
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
== END ==
LOC: PAIN 08:54
DX: M47.816 Spondylosis without myelopathy or radiculopathy, lumbar region (principal); M16.0 Bilateral primary osteoarthritis of hip; M17.0 Bilateral primary osteoarthritis of knee; M19.012 Primary osteoarthritis, left shoulder; M19.011 Primary osteoarthritis, right shoulder; G56.01 Carpal tunnel syndrome, right upper limb; I10 Essential (primary) hypertension; Z79.899 Other long term (current) drug therapy

== ENCOUNTER → 2018-09-11 | Outpatient (CLI) | payer OTHER, BC ==
[~2018-09-11] VITALS: Ht 182.9 cm; Wt 109.9 kg
[2018-09-11 12:50] VITALS: BP 102/56
--- NOTE | 2018-09-11 13:04 | NUR ---
Pain Clinic Assessment: 1. History of Osteoarthritis: BACK History of Rheumatoid Arthritis: Not Applicable 2. Height: 6 ft. 0 in. 182.9 cm. Weight: 242.2 lb. oz. 109.861 kg. Patient's BMI: 32.8 3. Vital Signs: BP: 102/56 Pulse: 60 Resp: 16 Temp: 02 Sat: 97 ECG Mon: 4. Pain Intensity: 3 5. Fall Risk: Dizziness: N Needs help standing or walking: Y Fallen in the last 3 months: N Fall risk comments: 6. Patient on Blood Thinner: None 7. History of Hypertension: Y 8. Opioid Therapy greater than 6 weeks: Y Opiate Contract Signed: 12/26/15 9. Risk Assessment Tool Provided: LOW RISK 0 10. Functional Assessment Tool: 11. Recreational Drug Use: Never Drug Type: Tobacco Use: Never Smoker Tobacco Type: Amount or Packs/day: How Many Years: Alcohol Use: No Frequency: Quant:
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
== END ==
LOC: PAIN 08-23 07:04
DX: M19.012 Primary osteoarthritis, left shoulder (principal); M16.0 Bilateral primary osteoarthritis of hip; M17.0 Bilateral primary osteoarthritis of knee; I10 Essential (primary) hypertension; G56.00 Carpal tunnel syndrome, unspecified upper limb; Z79.899 Other long term (current) drug therapy

== ENCOUNTER → 2018-11-21 | Outpatient (CLI) | payer OTHER, BC ==
[~2018-11-21] VITALS: Ht 182.9 cm; Wt 104.3 kg
[~2018-11-21] MED LIST changes: +VOLTAREN100 GM TOP
[2018-11-21 11:08] VITALS: BP 139/74
--- NOTE | 2018-11-21 11:16 | NUR ---
Pain Clinic Assessment: 1. History of Osteoarthritis: BACK History of Rheumatoid Arthritis: Not Applicable 2. Height: 6 ft. 0 in. 182.9 cm. Weight: 230.0 lb. oz. 104.328 kg. Patient's BMI: 31.2 3. Vital Signs: BP: 139/74 Pulse: 60 Resp: 15 Temp: 02 Sat: 97 ECG Mon: 4. Pain Intensity: 4 5. Fall Risk: Dizziness: N Needs help standing or walking: Y Fallen in the last 3 months: N Fall risk comments: USES CANE 6. Patient on Blood Thinner: None 7. History of Hypertension: Y 8. Opioid Therapy greater than 6 weeks: Y Opiate Contract Signed: 12/26/15 9. Risk Assessment Tool Provided: LOW RISK 0 10. Functional Assessment Tool: 11. Recreational Drug Use: Never Drug Type: Tobacco Use: Never Smoker Tobacco Type: Amount or Packs/day: How Many Years: Alcohol Use: No Frequency: Quant:
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
== END ==
LOC: PAIN 06:53
DX: M47.816 Spondylosis without myelopathy or radiculopathy, lumbar region (principal); I10 Essential (primary) hypertension; K59.00 Constipation, unspecified; M19.90 Unspecified osteoarthritis, unspecified site; Z79.891 Long term (current) use of opiate analgesic

== ENCOUNTER → 2018-11-28 | Outpatient (CLI) | payer OTHER, BC | LOC: HYPER 11-21 06:40 | DX: T81.89XD Other complications of procedures, not elsewhere classified, subsequent encounter (principal); I89.0 Lymphedema, not elsewhere classified; I87.2 Venous insufficiency (chronic) (peripheral); Z95.0 Presence of cardiac pacemaker; Z91.81 History of falling; Z87.891 Personal history of nicotine dependence; Y83.8 Other surgical procedures as the cause of abnormal reaction of the patient, or of later complication, without mention of misadventure at the time of the procedure ==

== ENCOUNTER → 2018-12-12 | Outpatient (CLI) | payer OTHER, BC | LOC: HYPER 06:45 | DX: T81.89XD Other complications of procedures, not elsewhere classified, subsequent encounter (principal); I89.0 Lymphedema, not elsewhere classified; R21 Rash and other nonspecific skin eruption; N18.9 Chronic kidney disease, unspecified; I48.1 Persistent atrial fibrillation; M19.90 Unspecified osteoarthritis, unspecified site; Z95.0 Presence of cardiac pacemaker; Z87.891 Personal history of nicotine dependence; Y83.8 Other surgical procedures as the cause of abnormal reaction of the patient, or of later complication, without mention of misadventure at the time of the procedure ==

== ENCOUNTER → 2019-03-22 | Outpatient (CLI) | payer OTHER, BC ==
[~2019-03-22] VITALS: Ht 182.9 cm; Wt 111.6 kg
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
[2019-03-22 09:48] VITALS: BP 130/57
--- NOTE | 2019-03-22 10:00 | NUR ---
Pain Clinic Assessment: 1. History of Osteoarthritis: BACK History of Rheumatoid Arthritis: Not Applicable 2. Height: 6 ft. 0 in. 182.9 cm. Weight: 246.0 lb. oz. 111.585 kg. Patient's BMI: 33.4 3. Vital Signs: BP: 130/57 Pulse: 60 Resp: 20 Temp: 02 Sat: 97 ECG Mon: 4. Pain Intensity: 3 5. Fall Risk: Dizziness: N Needs help standing or walking: N Fallen in the last 3 months: N Fall risk comments: USES CANE 6. Patient on Blood Thinner: None 7. History of Hypertension: Y 8. Opioid Therapy greater than 6 weeks: Y Opiate Contract Signed: 12/26/15 9. Risk Assessment Tool Provided: LOW RISK 0 10. Functional Assessment Tool: 11. Recreational Drug Use: Never Drug Type: Tobacco Use: Never Smoker Tobacco Type: Amount or Packs/day: How Many Years: Alcohol Use: No Frequency: Quant:
== END ==
LOC: PAIN 06:56
DX: M47.26 Other spondylosis with radiculopathy, lumbar region (principal); I10 Essential (primary) hypertension; G89.4 Chronic pain syndrome; G62.9 Polyneuropathy, unspecified; Z79.891 Long term (current) use of opiate analgesic

== ENCOUNTER → 2019-06-18 | Outpatient (CLI) | payer OTHER, BC ==
[~2019-06-18] VITALS: Ht 182.9 cm; Wt 103.3 kg
[~2019-06-18] MED LIST changes: +ZANAFLEX4 M2 PO
[2019-06-18 09:36] VITALS: BP 91/47
--- NOTE | 2019-06-18 09:50 | NUR ---
Pain Clinic Assessment: 1. History of Osteoarthritis: BACK History of Rheumatoid Arthritis: Not Applicable 2. Height: 6 ft. 0 in. 182.9 cm. Weight: 227.8 lb. oz. 103.330 kg. Patient's BMI: 30.9 3. Vital Signs: BP: 91/47 Pulse: 60 Resp: 14 Temp: 02 Sat: 97 ECG Mon: 4. Pain Intensity: 4 5. Fall Risk: Dizziness: N Needs help standing or walking: N Fallen in the last 3 months: N Fall risk comments: USES CANE 6. Patient on Blood Thinner: None 7. History of Hypertension: Y 8. Opioid Therapy greater than 6 weeks: Y Opiate Contract Signed: 12/26/15 9. Risk Assessment Tool Provided: LOW RISK 0 10. Functional Assessment Tool: 11. Recreational Drug Use: Never Drug Type: Tobacco Use: Never Smoker Tobacco Type: Amount or Packs/day: How Many Years: Alcohol Use: No Frequency: Quant:
--- NOTE | 2019-06-19 09:16 | HPC ---
[facility] [address] [place] [address] PAIN MANAGEMENT CONSULTATION Name: JOSÉ LUIS SALAMANCA Room #: REG [facility] Shahida#: [id number] Admission: 06/18/19 Attend Phys: Adriane Yang Discharge: Date of : 35 Report #: [id number] THIS REPORT FOR: cc: Epifanio Lezama MD, Neal A. MD Hocker,Adriane SPENCER ~ CC: Adriane Lezama DATE OF SERVICE: 06/18/2019 CHIEF COMPLAINT: Chronic low back pain with spondylosis and arthritic changes. HISTORY OF PRESENT ILLNESS: This is a pleasant 84-year-old gentleman who returns to the pain clinic today for refill of his medications that he uses to help treat his ongoing low back pain, bilateral shoulder pain and hip pain. Today, he is reporting his pain score 4/10 stating it is a constant, aching pain, worse with movement and walking. He feels the medications as well as lying down have been beneficial in controlling his pain. Today, he would like refills of those medicines. The patient is today complaining that he is slightly unsteady. He reports he is on a 40-day fast from his [facility]. He states he has not taken his blood pressure medicine or Lasix for several days because he felt like his blood pressure had been decreased today currently, it is 91/47 and 72/49. The patient states that he is drinking some water a day, but he is not eating any food and has not since 06/03/2019. He said he has been monitoring his blood pressure at home and it was not quite as low as this but he has been feeling dizzy and unsteady. ALLERGIES: No known drug allergies. CURRENT LIST OF MEDICATIONS: Hydrocodone 10/325 p.r.n., tizanidine 4 mg 1-2 at bedtime, diclofenac gel, Lasix on hold, Edarbyclor on hold, lysine, and Flomax. PATIENT'S PQRS: 1. He has osteoarthritis in his back and knees, bilateral shoulders. Denies any rheumatoid arthritis. 2. Height is 6 feet, weight is 227, BMI is 30. 3. Vital signs: 91/47 in his right arm and 72/49 in his left arm, pulse is 60, respirations 14, oxygen sat is 97. 4. Pain score is 4/10. 5. Does complain of dizziness, uses a cane for walking, has not fallen, but complains of being unsteady. 6. Blood thinners, he denies. He is on hypertensives, is not currently taking them. [address] [address] PAIN MANAGEMENT CONSULTATION Name: CHEIKHJOSÉ LUIS Room #: [facility] Shahida#: [id number] Admission: 06/18/19 Attend Phys: Adriane Yang Discharge: Date of : 35 Report #: [id number] 7. Opioid therapy is greater than 6 weeks; therefore, an opioid signed contract is on the chart. Risk assessment tool is low. Functional assessment is . 8. Recreational drug use, he denies. He is not a smoker and does not drink alcohol. According to the prescription monitoring system, the patient is filling appropriately for his medications. He is due to fill those medicines today. His MME is 40 MME. PHYSICAL EXAMINATION: GENERAL: This is alert and orientated 84-year-old gentleman who appears his stated age, placing his current pain score at 4/10. HEENT: Normocephalic, atraumatic. Extraocular eye muscles are intact. Hearing is adequate. Mucuos membranes are slightly dry. MUSCULOSKELETAL: He has tenderness in his bilateral shoulders and left wrist. He also has tenderness across his lumbar spine that radiates into the L5-S1 dermatomal distribution. Lower extremity strength judged to be 5/5 in all major muscle groups. He has decreased skin turgor today. IMPRESSION: 1. 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 2. Lumbar spondylosis. 3. Hypotension. 4. Peripheral neuropathy with recent carpal tunnel surgery, well-healed scars. 5. Complex medical management under terms of written opioid agreement. PLAN: 1. We discussed treatment options with the patient today. I discussed the cardiac possible complications with having a low blood pressure. I explained to him that his normal blood pressure in our clinic has been 130/60 for several visits. It is significantly lower today, we talked about the risk for heart attack or possible stroke by having to lower blood pressure, encouraged the patient to at least eat one meal of high protein food a day if he wants to continue the fast due to his roman catholic beliefs, I understand that, but I do not want him to have health issues regarding this at his age. Dr. Sanchez did come and see the patient as well and reiterated. We strongley encouraged the patient to have at least 1 high protein meal a day to drink plenty of water. He may continue his SlimFast twice a day but for health purposes it is unhealthy to have a blood pressure this low. We explained that it could be fatal for someone of his age to continue this type of fast. 2. We will resend his medicines electronically for his hydrocodone 10/325, #120, for 3 months as well as tizanidine 4 mg 1-2 at bedtime with 2 additional refills. The patient takes this on an as needed basis. 3. 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 Again, the patient was seen in collaboration with Dr. Jacky Sanchez. <ELECTRONICALLY SIGNED> By: Adriane Yang 06/19/19 0916 [id number] Adriane Yang /nt
== END ==
LOC: PAIN 06:43
DX: M47.816 Spondylosis without myelopathy or radiculopathy, lumbar region (principal); M17.0 Bilateral primary osteoarthritis of knee; M19.011 Primary osteoarthritis, right shoulder; M19.012 Primary osteoarthritis, left shoulder; I95.9 Hypotension, unspecified; G62.9 Polyneuropathy, unspecified; G89.29 Other chronic pain; Z98.890 Other specified postprocedural states; Z79.899 Other long term (current) drug therapy

== ENCOUNTER → 2019-08-15 | Outpatient (CLI) | payer OTHER, BC | LOC: SJCVC 14:18 | DX: I48.21 Permanent atrial fibrillation (principal); E78.00 Pure hypercholesterolemia, unspecified; I44.2 Atrioventricular block, complete; I12.9 Hypertensive chronic kidney disease with stage 1 through stage 4 chronic kidney disease, or unspecified chronic kidney disease; N18.3 Chronic kidney disease, stage 3 (moderate); I70.1 Atherosclerosis of renal artery; I71.01 Dissection of thoracic aorta; Z95.0 Presence of cardiac pacemaker ==

== ENCOUNTER → 2019-09-12 | Outpatient (CLI) | payer OTHER, BC ==
[~2019-09-12] VITALS: Ht 182.9 cm; Wt 104.3 kg
[~2019-09-12] MED LIST changes: +AMLODIPINE BESY10 MG PO; +CIPRO500 M1 PO; +FLAGYL500 M1 PO; +MAGNESIUM250 M1 PO; +NORVASC 2.5 MG2.5 M1 PO; +VITAMIN D3 COM1 EACH PO
[2019-09-12 09:11] VITALS: BP 111/59
--- NOTE | 2019-09-12 09:19 | NUR ---
Pain Clinic Assessment: 1. History of Osteoarthritis: BACK History of Rheumatoid Arthritis: Not Applicable 2. Height: 6 ft. 0 in. 182.9 cm. Weight: 230.0 lb. oz. 104.328 kg. Patient's BMI: 31.2 3. Vital Signs: BP: 111/59 Pulse: 60 Resp: 16 Temp: 02 Sat: 98 ECG Mon: 4. Pain Intensity: 3 5. Fall Risk: Dizziness: N Needs help standing or walking: N Fallen in the last 3 months: N Fall risk comments: USES CANE 6. Patient on Blood Thinner: None 7. History of Hypertension: Y 8. Opioid Therapy greater than 6 weeks: Y Opiate Contract Signed: 12/26/15 9. Risk Assessment Tool Provided: LOW RISK 0 10. Functional Assessment Tool: 11. Recreational Drug Use: Never Drug Type: Tobacco Use: Never Smoker Tobacco Type: Amount or Packs/day: How Many Years: Alcohol Use: No Frequency: Quant:
--- NOTE | 2019-09-12 16:14 | HPC ---
[facility] [address] [place] [address] PAIN MANAGEMENT CONSULTATION Name: JOSÉ LUIS SALAMANCA [id number] Admission: 09/12/19 Attend Phys: Adriane Yang Discharge: Date of : 35 Report #: [id number] THIS REPORT FOR: cc: Epifanio Lezama MD, Neal A. MD Hocker,Adriane SPENCER ~ CC: NAKUL EDWARD MD DATE OF SERVICE: 09/12/2019 CHIEF COMPLAINT: Chronic low back pain with spondylosis and arthritic changes. HISTORY OF PRESENT ILLNESS: This is a pleasant 84-year-old gentleman who returns to the pain clinic today for refill of his medications. Today he is stating that his pain score is 3/10, located in his lower back and his shoulders. He feels that the pain medicine of hydrocodone as well as his diclofenac gel have been very beneficial, stating he is an aching, constant pain, worse with any movements or using his arms. He denies problems with constipation in fact lately he has been having some bouts of diarrhea he believes that has to do is related to some of his vitamins that he has tried to decrease some of that use. ALLERGIES: No known drug allergies. CURRENT LIST OF MEDICATIONS: Vitamin D3, amlodipine, tizanidine, hydrocodone 10/325 up to 4 times a day, diclofenac gel up to 4 times a day, Lasix, Edarbyclor, lysine, and Flomax. PQRS: 1. He has arthritic changes in his shoulders, knees and lumbar spine. Denies any rheumatoid arthritis. 2. Height is 6 feet, weight is 230, BMI is 31. 3. Vital signs 111/59, pulse is 60, respirations 16, oxygen sat is 98. 4. Pain score is 3/10. 5. Denies dizziness, does not need help walking or standing and has not fallen in the last 3 months. 6. The patient is not on blood thinners, but does take medicine for hypertension. 7. Opioid therapy is greater than 6 weeks; therefore, an opioid signed contract is on the chart. Risk assessment tool is low. Functional assessment is . 8. Recreational drug use, he denies. He is not a smoker and does not drink alcohol. According to the prescription monitoring system, the patient is filling appropriately for his medications, filling them in a timely fashion. His morphine mEq is 40 per the CDC guidelines and he will [place] [address] PAIN MANAGEMENT CONSULTATION Name: JOSÉ LUIS SALAMANCA Room #: REG [facility] Pinedo#: [id number] Admission: 09/12/19 Attend Phys: Adriane Yang Discharge: Date of : 35 Report #: [id number] today for a random drug screen. PHYSICAL EXAMINATION: GENERAL: This is a well-developed, well-nourished, well-hydrated 84-year-old gentleman who appears his stated age, placing his current pain score today at 3/10. He is alert and orientated. HEENT: Normocephalic, atraumatic. Extraocular eye muscles are intact. He is wearing a mask today. MUSCULOSKELETAL: Tenderness in his bilateral shoulders and his lumbar spine that radiates from the L5-S1 dermatomal distribution. He does have equal and symmetrical strength in his lower extremities at 5/5. Today he has 3+ edema in his left lower extremities and 2+ in his right. No edema in his arms. IMPRESSION: 1. 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 2. Lumbar spondylosis. 3. Peripheral neuropathy. 4. Complex medical management under terms of written opioid agreement. We reviewed the fact that opiate medications are being used to provide analgesia adequate to support activities of daily living, not attempting to achieve a specific pain score on the 0-10 Visual Analog Scale. The current opiate medications are providing sufficient analgesia to allow the patient to participate in activities of daily living. The patient is not exhibiting any aberrant behavior suggestive of drug diversion. The patient is not having any adverse reactions to medications. The patient is not suffering from daytime somnolence or mental acuity changes. The patient is managing opiate-induced constipation with appropriate yeqo-ups-rycrgrs agents and dietary considerations. The patient was counseled on concern for caution with operating a motor vehicle while using opiate medications. PLAN: 1. We discussed treatment options with the patient today. The patient finds his medication very beneficial in reducing his pain, allowing him to be as active as he would like. We will renew this today for hydrocodone 10/325, #120 for 3 months. This will be sent electronically by Dr. Maco Riuz who is covering for Dr. Edward today. 2. I will refill his tizanidine 4 mg 1-2 at bedtime, #45 with 2 additional refills. 3. The patient finds the diclofenac helpful on his arthritic joints. We will send this electronically 2 grams #3 tubes with 2 additional refills. I did explain to the patient that this now is [id number]. If his insurance company does not cover this medication, he may buy it [id number]. The nurse has taken the liberty of giving him a handout as to aid him in applying the gel to joints that are more difficult to reach. [address] [address] PAIN MANAGEMENT CONSULTATION Name: JOSÉ LUIS SALAMANCA Room #: REG [facility].#: [id number] Admission: 09/12/19 Attend Phys: Adriane Yang Discharge: Date of : 35 Report #: [id number] 4. We did discuss his lower extremity edema. The patient has not been taking his furosemide. He has not refilled it. We encouraged him to do that. He is having significant swelling in his lower extremities. He states shortness of breath, though I did not notice that presently. 5. The patient is seen today in collaboration with Dr. Westley Ruiz. <ELECTRONICALLY SIGNED> By: Adriane Yang 09/12/19 1614 [id number] 1230 Adriane Yang /nt
== END ==
LOC: PAIN 06:44
PROVIDERS: ATTEND Clinical Nurse Specialist Adult Health
DX: M47.816 Spondylosis without myelopathy or radiculopathy, lumbar region (principal); M17.0 Bilateral primary osteoarthritis of knee; M19.012 Primary osteoarthritis, left shoulder; M19.011 Primary osteoarthritis, right shoulder; G62.9 Polyneuropathy, unspecified; Z79.891 Long term (current) use of opiate analgesic

== ENCOUNTER → 2019-10-02 | Outpatient (CLI) | payer OTHER, BC | LOC: CAT 09:33 | PROVIDERS: ATTEND Nurse Practitioner | DX: N28.1 Cyst of kidney, acquired (principal); N26.1 Atrophy of kidney (terminal); K52.9 Noninfective gastroenteritis and colitis, unspecified; K57.30 Diverticulosis of large intestine without perforation or abscess without bleeding; K40.90 Unilateral inguinal hernia, without obstruction or gangrene, not specified as recurrent ==

== ENCOUNTER → 2019-12-14 | Outpatient (CLI) | payer OTHER, BC ==
[~2019-12-14] VITALS: Ht 182.9 cm; Wt 99.3 kg
[2019-12-14 09:22] VITALS: BP 115/60
--- NOTE | 2019-12-14 09:25 | NUR ---
Pain Clinic Assessment: 1. History of Osteoarthritis: BACK History of Rheumatoid Arthritis: Not Applicable 2. Height: 6 ft. 0 in. 182.9 cm. Weight: 219.0 lb. oz. 99.338 kg. Patient's BMI: 29.7 3. Vital Signs: BP: 115/60 Pulse: 57 Resp: 18 Temp: 02 Sat: 97 ECG Mon: 4. Pain Intensity: 3 5. Fall Risk: Dizziness: N Needs help standing or walking: N Fallen in the last 3 months: N Fall risk comments: USES CANE 6. Patient on Blood Thinner: None 7. History of Hypertension: Y 8. Opioid Therapy greater than 6 weeks: Y Opiate Contract Signed: 12/26/15 9. Risk Assessment Tool Provided: LOW RISK 0 10. Functional Assessment Tool: 11. Recreational Drug Use: Never Drug Type: Tobacco Use: Never Smoker Tobacco Type: Amount or Packs/day: How Many Years: Alcohol Use: No Frequency: Quant:
--- NOTE | 2019-12-17 07:44 | HPC ---
[facility] [address] [place] [address] PAIN MANAGEMENT CONSULTATION Name: JOSÉ LUIS SALAMANCA Room #: REG [facility] Shahida#: [id number] Admission: 12/14/19 Attend Phys: Adriane Yang Discharge: Date of : 35 Report #: [id number] THIS REPORT FOR: cc: Epifanio Lezama MD, Neal A. MD Hocker, Amanda CNS ~ CC: Genevieve Ruiz MD DATE OF SERVICE: 12/14/2019 CHIEF COMPLAINT: Chronic low back pain with spondylosis and arthritic changes. HISTORY OF PRESENT ILLNESS: This is an 84-year-old gentleman who returns to the pain clinic today for refill of his opioid medications. He states that his pain score is 3/10, reporting that his pain is worse in his low back and his hips, though he does have some ongoing left shoulder pain as well. It is an aching, constant pain, worse with walking and movement of his arms. He feels that the medication as well as lying down have been beneficial in reducing his pain. At our last visit, the patient was complaining of some diarrhea. He did see his specialist and had a colonoscopy. He has now been started on budesonide to help reduce some of his inflammation in his colon. He reports he is not diagnosed with Crohn's disease, but they are treating him as such. Since our last visit in September, he has lost 11 pounds. ALLERGIES: No known drug allergies. CURRENT LIST OF MEDICATIONS: Potassium, hydrocodone 10/325 p.r.n., Voltaren gel, vitamin D, amlodipine, lysine, Flomax, budesonide and tizanidine. PQRS: 1. He has a history of osteoarthritis in his back. Denies any rheumatoid arthritis. 2. Height is 6 feet, weight is 219, BMI is 29. Vital signs 115/60, pulse is 57, respirations 18, oxygen sat is 97%. Pain score is 3/10. Fall risk. Denies dizziness, does not need help walking or standing, though at times he does use a cane. He has not fallen in the last 3 months. 3. The patient is not on any blood thinners, but does have a history of hypertension. His opioid therapy is greater than 6 weeks; therefore, an opioid signed contract is on the chart. Risk assessment is low. Functional assessment is . 4. Recreational drug use, he denies. He is not a smoker and does not drink alcohol. According to the prescription monitoring system, the patient is filling in a timely fashion. He is due to fill his medications today. According to the [address] [address] PAIN MANAGEMENT CONSULTATION Name: JOSÉ LUIS SALAMANCA Room #: REG [facility] Pinedo#: [id number] Admission: 12/14/19 Attend Phys: Adriane Yang Discharge: Date of : 35 Report #: [id number] guidelines, his morphine mEq is 40. We did check a random drug screen at his last visit that is appropriate for all of his medications. PHYSICAL EXAMINATION: GENERAL: This is alert and orientated, well-hydrated 84-year-old, placing his pain score at 3/10 today. He is answering my questions appropriately. HEENT: Normocephalic, atraumatic. Extraocular eye muscles are intact. He is wearing a mask. MUSCULOSKELETAL: He has tenderness in his lumbosacral region that does radiate down his L5-S1 dermatomal distribution into his hips bilaterally. He does have tenderness in his shoulders with limited movement and range of motion, especially with abduction. There is 1+ edema in his lower extremities. Lower extremity strength is equal and symmetrical at 5/5. IMPRESSION: 1. 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 2. Lumbar spondylosis. 3. Peripheral neuropathy. 4. Complex medical management under terms of written opioid agreement. We reviewed the fact that opiate medications are being used to provide analgesia adequate to support activities of daily living, not attempting to achieve a specific pain score on the 0-10 Visual Analog Scale. The current opiate medications are providing sufficient analgesia to allow the patient to participate in activities of daily living. The patient is not exhibiting any aberrant behavior suggestive of drug diversion. The patient is not having any adverse reactions to medications. The patient is not suffering from daytime somnolence or mental acuity changes. The patient is managing opiate-induced constipation with appropriate jxmy-xer-bgaqvpq agents and dietary considerations. The patient was counseled on concern for caution with operating a motor vehicle while using opiate medications. PLAN: 1. We discussed treatment options with the patient today. The patient feels the hydrocodone has been beneficial in controlling most of his pain. We will continue that medication for , #120 for today, 4-week and 8-week release. These will be sent electronically by Dr. Westley Ruiz. 2. We will refill the patient's tizanidine 4 mg, he takes 1-2 at bedtime and finds this does help his muscles relax enabling him to sleep at night. He does not take this medication during the day. 3. He does continue to use diclofenac gel, but no refills are needed today. I did explain that it is ypuk-jsq-xkhqfzc now, but he feels that it is more cost effective to have a prescription of this medication. [address] [place] [address] PAIN MANAGEMENT CONSULTATION Name: JOSÉ LUIS SALAMANCA Room #: [facility] Pinedo#: [id number] Admission: 12/14/19 Attend Phys: Adriane Yang Discharge: Date of : 35 Report #: [id number] 4. The patient will be seen in collaboration today with Dr. Westley Ruiz. He will follow up in 3 months. <ELECTRONICALLY SIGNED> By: Adriane Yang 12/17/19 0744 0945 1231 Adriane Yang /nt
== END ==
LOC: PAIN 06:50
PROVIDERS: ATTEND Clinical Nurse Specialist Adult Health
DX: M47.816 Spondylosis without myelopathy or radiculopathy, lumbar region (principal); G89.29 Other chronic pain; M19.90 Unspecified osteoarthritis, unspecified site; G62.9 Polyneuropathy, unspecified; F11.20 Opioid dependence, uncomplicated; Z79.899 Other long term (current) drug therapy

== ENCOUNTER → 2020-02-20 | Outpatient (CLI) | payer OTHER, BC ==
[~2020-02-20] MED LIST changes: +BUDESONIDE EC3 MG PO
== END ==
LOC: SJCVCIMAG 08:47
PROVIDERS: ATTEND Internal Medicine Cardiovascular Disease
DX: I48.0 Paroxysmal atrial fibrillation (principal); M79.605 Pain in left leg; M79.89 Other specified soft tissue disorders; E78.00 Pure hypercholesterolemia, unspecified; I71.03 Dissection of thoracoabdominal aorta; I12.9 Hypertensive chronic kidney disease with stage 1 through stage 4 chronic kidney disease, or unspecified chronic kidney disease; N18.30 Chronic kidney disease, stage 3 unspecified; I71.2 Thoracic aortic aneurysm, without rupture; I44.2 Atrioventricular block, complete; I70.1 Atherosclerosis of renal artery; I73.9 Peripheral vascular disease, unspecified; K52.9 Noninfective gastroenteritis and colitis, unspecified; Z95.0 Presence of cardiac pacemaker; Z79.899 Other long term (current) drug therapy; Z87.891 Personal history of nicotine dependence; Z87.19 Personal history of other diseases of the digestive system

== ENCOUNTER → 2020-03-06 | Outpatient (CLI) | payer OTHER, BC ==
[~2020-03-06] VITALS: Ht 182.9 cm; Wt 103.9 kg
[2020-03-06 13:10] VITALS: BP 148/91
--- NOTE | 2020-03-06 13:13 | NUR ---
Pain Clinic Assessment: 1. History of Osteoarthritis: BACK History of Rheumatoid Arthritis: Not Applicable 2. Height: 6 ft. 0 in. 182.9 cm. Weight: 229.0 lb. oz. 103.874 kg. Patient's BMI: 31.1 3. Vital Signs: BP: 148/91 Pulse: 66 Resp: 16 Temp: 02 Sat: 95 ECG Mon: 4. Pain Intensity: 3 5. Fall Risk: Dizziness: N Needs help standing or walking: N Fallen in the last 3 months: N Fall risk comments: USES CANE 6. Patient on Blood Thinner: None 7. History of Hypertension: Y 8. Opioid Therapy greater than 6 weeks: Y Opiate Contract Signed: 12/26/15 9. Risk Assessment Tool Provided: LOW RISK 0 10. Functional Assessment Tool: 11. Recreational Drug Use: Never Drug Type: Tobacco Use: Never Smoker Tobacco Type: Amount or Packs/day: How Many Years: Alcohol Use: No Frequency: Quant:
--- NOTE | 2020-03-11 07:45 | HPC ---
[facility] [address] [place] [address] PAIN MANAGEMENT CONSULTATION Name: JOSÉ LUIS SALAMANCA Room #: REG [facility] Shahida#: [id number] Admission: 03/06/20 Attend Phys: Adriane Yang Discharge: Date of : 35 Report #: [id number] THIS REPORT FOR: cc: Epifanio Lezama MD, Neal A. MD Hocker, Amanda CNS ~ CC: Adriane Sanchez MD DATE OF SERVICE: 03/06/2020 CHIEF COMPLAINT: Chronic low back pain with spondylosis and arthritic changes. HISTORY OF PRESENT ILLNESS: As you know, this is an 84-year-old gentleman who falls in the pain clinic for his ongoing low back pain and finds the hydrocodone beneficial in helping relieve it. Today, he is rating the pain score of 3/10 in his low back, left knee and shoulders. It is a constant, aching pain per his report. He feels that walking is most problematic, but the medications as well as lying down have been beneficial. The patient states he does have some ongoing constipation issues, but he tries to manage with diet. The patient reports he is going to see an orthopedic physician for a possible knee replacement on his left side at , his appointment is earlier in April. He reports when he ambulates, his pain is on the lateral aspect in the inner part of his left knee and it is becoming more problematic. Today the patient presents with significant swelling in his lower left extremity at 3+ edema and 1+ on his right. He reports he was on a diuretic in the past, but he has been off that for some time. He has noticed increase in swelling for the past few weeks and his weight is up today from his last visit 10 pounds since his visit in December. ALLERGIES: No known drug allergies. CURRENT LIST OF MEDICATIONS: Hydrocodone 10/325 p.r.n., diclofenac gel, budesonide, tizanidine, magnesium, potassium, vitamin D3, amlodipine, lysine, and Flomax. PATIENT'S PQRS: 1. He has arthritic changes in his back and knees. Denies any rheumatoid arthritis. 2. Height is 6 feet, weight is 229, BMI is 31. 3. Vital signs; blood pressure 148/91, pulse is 66, respirations 16, oxygen sat is 95%. 4. Pain score is 3/10. [facility] [address] [place] [address] PAIN MANAGEMENT CONSULTATION Name: JOSÉ LUIS SALAMANCA Room #: REG [facility] Shahida#: [id number] Admission: 03/06/20 Attend Phys: Adriane Yang Discharge: Date of : 35 Report #: [id number] 5. Denies dizziness, does not need assistance with walking, has not fallen in the last 3 months. 6. The patient is not on any blood thinners, but does take medicine for hypertension. 7. Opioid therapy is greater than 6 weeks; therefore, an opioid signed contract is on the chart. Risk assessment is low. Functional assessment is . 8. Recreational drug use, he denies. He is not a smoker and does not drink alcohol. According to the prescription monitoring system, the patient is due to fill his medications later this week. His morphine milliequivalent according to the CDC guidelines is 40. There is a recent drug screen on this chart that is appropriate for his medications. PHYSICAL EXAMINATION: GENERAL: This is alert and orientated, well-hydrated 84-year-old gentleman who appears his stated age, placing his current pain score at 3/10 today. He is a good historian. HEENT: Normocephalic, atraumatic. Extraocular eye muscles are intact. He is wearing a mask. MUSCULOSKELETAL: He has tenderness in his lumbosacral region that radiates down his L5-S1 dermatomal distribution into his legs bilaterally, greater on the left than the right. Tenderness and edema noted in his left knee on the lateral aspect. He has 3+ edema in his left lower extremity and 1+ on the right lower extremity. His strength is equal and symmetrical at 5/5. IMPRESSION: 1. 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 2. Lumbar spondylosis. 3. Peripheral neuropathy. 4. Left knee pain. 5. Complex medical management utilizing opioid medications. We reviewed the fact that opiate medications are being used to provide analgesia adequate to support activities of daily living, not attempting to achieve a specific pain score on the 0-10 Visual Analog Scale. The current opiate medications are providing sufficient analgesia to allow the patient to participate in activities of daily living. The patient is not exhibiting any aberrant behavior suggestive of drug diversion. The patient is not having any adverse reactions to medications. The patient is not suffering from daytime somnolence or mental acuity changes. The patient is managing opiate-induced constipation with appropriate aiod-srg-jvtpxgc agents and dietary considerations. The patient was counseled on concern for caution with operating a motor vehicle while using opiate medications. [facility] [address] [place] [address] PAIN MANAGEMENT CONSULTATION Name: JOSÉ LUIS SALAMANCA Room #: REG [facility] Pinedo#: [id number] Admission: 03/06/20 Attend Phys: Adriane Yang Discharge: Date of : 35 Report #: [id number] PLAN: 1. We discussed treatment options with the patient today. He does present with significant lower leg edema. I encouraged him to decrease his sodium intake as well as elevating his legs when he is at home. He reports that the edema has been increasing in the past few weeks. He has a history of swelling in his lower extremities. I encouraged him to contact Dr. Sullivan's this office if his edema continues past Tuesday. 2. The patient reports possible total knee replacement in the next few months. He will be following a [facility] surgeon. I encouraged him to let us know if this does get scheduled and we will discuss his opioid medication management pre and postop. 3. We will have Dr. Jacky Sanchez send his hydrocodone 10/, #120 for today, 4 and 8-week supply. 4. I will send his diclofenac gel, which he finds beneficial on his multiple arthritic joints with several refills. 5. The patient is seen today in collaboration with Dr. Jacky Sanchez. He will return as needed or contact us by phone if he has surgery. <ELECTRONICALLY SIGNED> By: Adriane Yang 03/11/20 0745 [id number] [id number] Adriane Yang /nt
== END ==
LOC: PAIN 06:48
PROVIDERS: ATTEND Clinical Nurse Specialist Adult Health
DX: M47.816 Spondylosis without myelopathy or radiculopathy, lumbar region (principal); G62.9 Polyneuropathy, unspecified; M25.562 Pain in left knee; F11.20 Opioid dependence, uncomplicated; G89.29 Other chronic pain

== ENCOUNTER → 2020-06-05 | Outpatient (CLI) | payer OTHER, BC ==
[~2020-06-05] VITALS: Ht 182.9 cm; Wt 100.8 kg
[~2020-06-05] MED LIST changes: +TIZANIDINE HCL4 M2 PO
[2020-06-05 13:13] VITALS: BP 90/44
--- NOTE | 2020-06-05 13:30 | NUR ---
Pain Clinic Assessment: 1. History of Osteoarthritis: BACK History of Rheumatoid Arthritis: Not Applicable 2. Height: 6 ft. 0 in. 182.9 cm. Weight: 222.2 lb. oz. 100.789 kg. Patient's BMI: 30.1 3. Vital Signs: BP: 90/44 Pulse: 60 Resp: 16 Temp: 02 Sat: 97 ECG Mon: 4. Pain Intensity: 2 5. Fall Risk: Dizziness: N Needs help standing or walking: N Fallen in the last 3 months: N Fall risk comments: USES CANE 6. Patient on Blood Thinner: None 7. History of Hypertension: Y 8. Opioid Therapy greater than 6 weeks: Y Opiate Contract Signed: 12/26/15 9. Risk Assessment Tool Provided: LOW RISK 0 10. Functional Assessment Tool: 11. Recreational Drug Use: Never Drug Type: Tobacco Use: Never Smoker Tobacco Type: Amount or Packs/day: How Many Years: Alcohol Use: No Frequency: Quant:
--- NOTE | 2020-06-05 14:42 | HPC ---
[facility] [address] [place] [address] PAIN MANAGEMENT CONSULTATION Name: JOSÉ LUIS SALAMANCA Room #: REG [facility] Shahida#: [id number] Admission: 06/05/20 Attend Phys: Adriane Yang Discharge: Date of : 35 Report #: [id number] THIS REPORT FOR: cc: Epifanio Lezama MD, Neal A. MD Hocker,Adriane SPENCER ~ DATE OF SERVICE: 06/05/2020 CHIEF COMPLAINT: Chronic low back pain with spondylosis and arthritic changes. HISTORY OF PRESENT ILLNESS: This is an 85-year-old gentleman who returns to the pain clinic today for renewal of his hydrocodone. He reports that his pain score is 2/10 in his low back. He does have some ongoing left knee pain as well as some shoulder discomfort from arthritis. Overall, he believes his current regimen is beneficial in helping control his pain. He tries to be as active as possible, though with extended periods of walking and doing stairs his pain has increased. He reports recently going to physical therapy,is now going once a week. This is ordered by Dr. Beltran who he is seeing for his peripheral neuropathy in his hands and feet. He is unsure if it has been beneficial, but he does continue to do the exercises. ALLERGIES: No known drug allergies. CURRENT LIST OF MEDICATIONS: Hydrocodone 10/325 p.r.n., Voltaren gel, budesonide, tizanidine, magnesium, potassium, vitamin D, amlodipine, lysine, MiraLax. PQRS: 1. He has osteoarthritic changes in his back, shoulders and knees. Denies any rheumatoid arthritis. 2. Height is 6 feet, weight is 222, BMI is 30. 3. Vital signs; blood pressure 90/44, then rechecked 102/50; pulse is 60; respirations 16; oxygen sat is 97%. 4. Pain score is 2/10. 5. Denies dizziness, does not need assistance with ambulation, has not fallen in the last 3 months. 6. The patient is not on any blood thinners, but does have a history of hypertension, though he is no longer on medications and is quite low today. 7. Opioid therapy is greater than 6 weeks; therefore, an opioid signed contract is on the chart. Risk assessment is low. Functional assessment is . 8. Recreational drug use, he denies. He is not a smoker and does not drink alcohol. According to the prescription monitoring system, he last filled in early May and is past due by several days. He reports down to 1 pill at home. His morphine mEq is 20-40 MMEs depending on his usage per day[place] [address] PAIN MANAGEMENT CONSULTATION Name: JOSÉ LUIS SALAMANCA Room #: REG [facility] Pinedo#: [id number] Admission: 06/05/20 Attend Phys: Adriane Yang Discharge: Date of : 35 Report #: [id number] screen on the chart that is appropriate for his medications as well. PHYSICAL EXAMINATION: GENERAL: This is alert and orientated 85-year-old who is well-developed, well-nourished, rating his pain score 2/10. He appears his stated age. He is a good historian, answering all my questions appropriately and his speech is fluent. HEENT: Normocephalic and atraumatic. Extraocular eye muscles are intact. He is wearing a mask. MUSCULOSKELETAL: Tenderness in his bilateral shoulders as well as left knee. No edema noted. He has tenderness in his lumbosacral region that radiates in the L5-S1 dermatomal distribution into his legs. Lower extremity strength are symmetrical at 5/5. 1+ edema noted in his left lower extremity, history of lymphedema post-cancer treatment. IMPRESSION: 1. 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 2. Lumbar spondylosis. 3. Peripheral neuropathy. 4. Left knee pain. 5. Opioid medications under terms of written opioid agreement. We reviewed the fact that opiate medications are being used to provide analgesia adequate to support activities of daily living, not attempting to achieve a specific pain score on the 0-10 Visual Analog Scale. The current opiate medications are providing sufficient analgesia to allow the patient to participate in activities of daily living. The patient is not exhibiting any aberrant behavior suggestive of drug diversion. The patient is not having any adverse reactions to medications. The patient is not suffering from daytime somnolence or mental acuity changes. The patient is managing opiate-induced constipation with appropriate oukf-cwl-pkixrbx agents and dietary considerations. The patient was counseled on concern for caution with operating a motor vehicle while using opiate medications. PLAN: 1. We discussed treatment options with the patient today. The patient finds his hydrocodone beneficial and would like to continue this medication. He denies any significant constipation or daytime somnolence as a result of these medications. 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 Scripts will be sent electronically by Dr. Jacky Sanchez today for #120 of his hydrocodone for today, for an 8-week release. 2. I will continue him on his tizanidine 4 mg, the patient takes 1 at bedtime to help relax his back muscles and occasionally maybe need to repeat this in the middle of the night #45 with one additional refills sent. [facility] [address] [place] [address] PAIN MANAGEMENT CONSULTATION Name: JOSÉ LUIS SALAMANCA Room #: REG [facility] Pinedo#: [id number] Admission: 06/05/20 Attend Phys: Adriane Yang Discharge: Date of : 35 Report #: [id number] 3. The patient's blood pressure was quite low when he arrived today, he was not experiencing any symptoms of hypotension. We did recheck his blood pressure and it was 102/50 manually in his arm. The patient follows with Dr. Sullivan for cardiac issues. Again, the patient is asymptomatic today. 4. The patient has decided not to have the COVID vaccine. He reports that he does not usually taking any vaccines. 5. The patient is seen in collaboration with Dr. Jacky Sanchez. Time spent with the patient in consultation and physical exam for 12 minutes. Prior to appointment today, I spent reviewing the chart and any pertinent medical documentation including physician notes and imaging time, also spent reviewing the medication prescription monitoring system, side effects of medication related to care, sending scripts electronically with collaborating physician and documentation of least 12 minutes. Total time 24 minutes. <ELECTRONICALLY SIGNED> By: Adriane Yang 06/05/20 1442 1415 1432 Adriane Yang /nt
== END ==
LOC: PAIN 04-21 13:54
PROVIDERS: ATTEND Clinical Nurse Specialist Adult Health
DX: G89.4 Chronic pain syndrome (principal); M47.816 Spondylosis without myelopathy or radiculopathy, lumbar region; M19.90 Unspecified osteoarthritis, unspecified site; G62.9 Polyneuropathy, unspecified; Z79.891 Long term (current) use of opiate analgesic; Z79.899 Other long term (current) drug therapy

== ENCOUNTER → 2020-08-28 | Outpatient (CLI) | payer OTHER, BC ==
[~2020-08-28] VITALS: Ht 182.9 cm; Wt 99.3 kg
[~2020-08-28] MED LIST changes: +ELIQUIS2.5 MG PO
[2020-08-28 14:42] VITALS: BP 149/69
--- NOTE | 2020-08-28 14:47 | NUR ---
Pain Clinic Assessment: 1. History of Osteoarthritis: BACK History of Rheumatoid Arthritis: Not Applicable 2. Height: 6 ft. in. 182.9 cm. Weight: 219.0 lb. oz. 99.338 kg. Patient's BMI: 29.7 3. Vital Signs: BP: 149/69 Pulse: 70 Resp: 18 Temp: 02 Sat: 96 ECG Mon: 4. Pain Intensity: 3 5. Fall Risk: Dizziness: N Needs help standing or walking: N Fallen in the last 3 months: N Fall risk comments: USES CANE 6. Patient on Blood Thinner: None 7. History of Hypertension: Y 8. Opioid Therapy greater than 6 weeks: Y Opiate Contract Signed: 12/26/15 9. Risk Assessment Tool Provided: LOW RISK 0 10. Functional Assessment Tool: 11. Recreational Drug Use: Never Drug Type: Tobacco Use: Never Smoker Tobacco Type: Amount or Packs/day: How Many Years: Alcohol Use: No Frequency: Quant:
== END ==
LOC: PAIN 08:42
PROVIDERS: ATTEND Clinical Nurse Specialist Adult Health
DX: M47.816 Spondylosis without myelopathy or radiculopathy, lumbar region (principal); M19.90 Unspecified osteoarthritis, unspecified site; G89.4 Chronic pain syndrome; G62.9 Polyneuropathy, unspecified; I10 Essential (primary) hypertension; Z79.891 Long term (current) use of opiate analgesic; Z79.899 Other long term (current) drug therapy

== ENCOUNTER → 2020-09-16 | Outpatient (CLI) | payer OTHER, BC | LOC: CAT 09:07 | PROVIDERS: ATTEND Family Medicine | DX: J34.89 Other specified disorders of nose and nasal sinuses (principal); J34.2 Deviated nasal septum; R59.9 Enlarged lymph nodes, unspecified ==

== ENCOUNTER → 2020-10-21 | Outpatient (CLI) | payer OTHER, BC ==
[2020-10-21 11:31] LABS: INR 0.97; PROTIME 10.6 Seconds (10.5-12.1)
--- NOTE | 2020-10-24 14:07 | PATH ---
[facility] [address] [place] [address] PATHOLOGY RPT PROCEDURE Name: MIKE DE LA ROSA Room #: REG [facility] Marycruz.#: [id number] Admission: 10/21/20 Date of : 35 Discharge: Report #: [id number] Path Case #: [id number] [facility] Accession Number: [id number] . 01 Material submitted: . neck - RIGHT PAROTID MASS BIOPSY. Modifiers: right, parotid . 01 Clinician provided ICD-10: D11.0 . 01 Clinical history: . LAB/CB/US/US GUIDED BIOPSY/SWOLLEN GLAND . 02 Diagnosis: Parotid, right parotid mass, needle core biopsy: - INTERMEDIATE GRADE NEOPLASM, SEE COMMENT. LBQ 10/23/2020 1538 Local . 02 Comment: Examination shows subtle desmoplastic stroma along with irregular epithelial islands without overt gland formation. Multiple properly controlled immunohistochemical stains are performed on block A1. The epithelial cells show strong nuclear reactivity with p63. In addition, RINA shows strong membranous reactivity. CD117 is reactive within rare cells. BCL-2, and S100 immunohistochemical stains are non-reactive within the neoplastic cells. GFAP is non-reactive within the stroma as well as the neoplastic cells. Smooth muscle myosin is non-reactive within the epithelial cells, or the cells lining the epithelial islands. Background parotid gland or salivary gland tissue is not sampled. . Based on the morphology as well as the immunohistochemical stains, the lesion may represent squamous cell carcinoma, or a partially sampled mucoepidermoid carcinoma as well. Squamous metaplastic changes within a partially sampled pleomorphic adenoma may resemble the same. In addition, other entities in the differential diagnosis include an adenoid cystic carcinoma or an epithelial-myoepithelial carcinoma. Due to the lack of normal salivary gland tissue in the background, it is also likely that this lesion may not be a salivary gland neoplasm. . Please note sample may not be entirely regional sales representative. Clinical correlation is required. A surgical excision/resection is suggested if clinically indicated. . Dr. Yosvany Mixon has seen this case and concurs with my diagnosis as well as interpretation. Findings conveyed to Dr. Lezama in the evening of 10/23/20. . [address] [address] PATHOLOGY RPT PROCEDURE Name: MIKE DE LA ROSA Room #: REG [facility] Pinedo#: [id number] Admission: 10/21/20 Date of : 35 Discharge: Report #: [id number] Path Case #: [id number] (IUV/db; 10/23/2020) . 02 Electronically signed: . Gely Grajeda MD, Pathologist NPI- [id number] . 01 Gross description: . The specimen is received in formalin, labeled "Mike De La Rosa, right parotid mass biopsy". Received are several minute fragments of pale luo tissue measuring 0.1 x 0.1 x 0.1 cm in aggregate dimensions. The specimen is filtered and entirely submitted in cassette A1. Due to the minute nature of the specimen, it may not survive processing. A portion of the specimen is received in RPMI solution and is forwarded to an outside laboratory for flow cytometry studies. ([facility]; 10/21/2020) . The specimen submitted in RPMI solution is returned from the outside laboratory and consists of a segment of pale luo tissue measuring 0.3 cm in maximum dimensions. The specimen is filtered and entirely submitted in cassette A2. ([facility]; 10/23/2020) QAC/QAC 10/23/2020 1041 Local . 02 Pathologist provided ICD-10: D49.0 . 02 CPT . 579307, C81725, X08338 Specimen Comment: A courtesy copy of this report has been sent to [phone] Specimen Comment: Report sent to Performed at: [address], [place] [id number] MD Yosvany Mixon MD Phone: [phone] Performed at: [address] [id number] MD Gely Grajeda MD Phone: [phone]
== END | disposition home or self-care (01) ==
LOC: ULTRA 09:32
PROVIDERS: ATTEND Family Medicine
DX: C07 Malignant neoplasm of parotid gland (principal); Z98.890 Other specified postprocedural states; Z79.899 Other long term (current) drug therapy; Z79.01 Long term (current) use of anticoagulants

== ENCOUNTER → 2020-11-13 | Outpatient (CLI) | payer OTHER, BC ==
[~2020-11-13] VITALS: Ht 182.9 cm; Wt 94.3 kg
[2020-11-13 09:30] VITALS: BP 137/73
--- NOTE | 2020-11-13 09:35 | NUR ---
Pain Clinic Assessment: 1. History of Osteoarthritis: BACK shoulders, neck, hands , feet History of Rheumatoid Arthritis: Not Applicable 2. Height: 6 ft. 0 in. 182.9 cm. Weight: 208.0 lb. oz. 94.348 kg. Patient's BMI: 28.2 3. Vital Signs: BP: 137/73 Pulse: 67 Resp: 16 Temp: 02 Sat: 97 ECG Mon: 4. Pain Intensity: 3 5. Fall Risk: Dizziness: N Needs help standing or walking: N Fallen in the last 3 months: N Fall risk comments: USES CANE 6. Patient on Blood Thinner: *FARNAZQUIS 7. History of Hypertension: Y 8. Opioid Therapy greater than 6 weeks: Y Opiate Contract Signed: 12/26/15 9. Risk Assessment Tool Provided: LOW RISK 0 10. Functional Assessment Tool: 11. Recreational Drug Use: Never Drug Type: Tobacco Use: Never Smoker Tobacco Type: Amount or Packs/day: How Many Years: Alcohol Use: No Frequency: Quant:
== END ==
LOC: PAIN 06:50
PROVIDERS: ATTEND Clinical Nurse Specialist Adult Health
DX: G89.4 Chronic pain syndrome (principal); M47.816 Spondylosis without myelopathy or radiculopathy, lumbar region; G62.9 Polyneuropathy, unspecified; Z79.891 Long term (current) use of opiate analgesic; Z79.899 Other long term (current) drug therapy

== ENCOUNTER 2020-11-27 09:34 | Observation (INO) | payer OTHER, BC ==
[~2020-11-27] VITALS: Ht 182.9 cm; Wt 97.5 kg
--- NOTE | ~2020-11-27 | O ---
[facility] [place] [address] [address] [place] [address] OPERATIVE REPORT Name: JOSÉ LUIS SALAMANCA Room #: 454-P [facility] Félix Pinedo#: [id number] Admission: 11/27/20 Attend Phys: Jef Desir MD Discharge: 11/28/20 Date of : 35 Report #: [id number] THIS REPORT FOR: cc: Epifanio Lezama MD, Neal A. MD Ellis, Steven F. MD ~ cc: Epifanio Lezama MD DATE OF SERVICE: 11/27/2020 PREOPERATIVE DIAGNOSIS: Right parotid mass. 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 PROCEDURE: Deep lobe parotidectomy, right side. DESCRIPTION OF PROCEDURE: The patient was brought to the operating room and placed in normal supine position. General anesthesia was obtained. An oral endotracheal tube was inserted. The patient was prepped and draped for right parotidectomy. A 1% lidocaine with 1:100,000 epinephrine was infiltrated under the ____ skin fold 2 cm behind the angle of the mandible. The patient was prepped and draped sterilely and NIM-2 monitors were placed for facial nerve monitoring. A 15 blade was used to make an incision overlying the right-sided parotid mass. Subcutaneous tissues were dissected sharply through the platysma. Subplatysmal flaps were developed superiorly to the angle of the mandible. The mass is adherent and ____ into the anterior border of the sternocleidomastoid muscle. The mass was from the muscle using Bovie and bipolar cautery. The mass was followed up under the angle of mandible to the digastric. It is adherent to the digastric as well and portion of the digastric was taken as part of the margin for the mass itself. The mass was then removed from the surrounding soft tissue with care to preserve the marginal mandibular branch of the nerve as well as the hypoglossal. The mass was sent for permanent pathology after removal. Wounds were examined for hemostasis, which was excellent. The wound was closed in multiple layers including a platysmal layer, subcutaneous and subcuticular suture. The patient is awoken from anesthesia and transferred to recovery in stable. He will follow up with me in a week for suture removal. By: 0726 0747 Jef Desir MD /nt
[~2020-11-27 09:34] MED LIST changes: +CO-ENZYME Q-1010 MG PO; +FLUOCINOLONE AC20 ML EA. EAR; +L-ARGININE1000 MG PO; +MULTI VITAMIN1 EACH PO; +ROSUVASTATIN CA20 MG PO; +VITAMIN D325 MC5 PO
[2020-11-27 10:40] VITALS: BP 120/68
[2020-11-27 16:38] VITALS: BP 143/81
--- NOTE | 2020-11-27 19:37 | NUR ---
Received pt from post op as Obsevation, to be dc in the am. Surgical incision on the right side of the neck covered in steri strips, dressing is minimally blood tinged. Ice pack placed on the surgical site. Uses the urinal at the bedside. POC followed with no signs or verbalizatiosn of distress noted. Pt stated he just needs to "hang out" here since he is alone at home. Pt is to DC, orders as in. Endorsed to the night nurse.
[2020-11-27 19:50] VITALS: BP 134/78
--- NOTE | 2020-11-28 03:46 | NUR ---
PT CARE ASSUMED WITH PT IN BED WATCHING TV.PT IS A/O X4.PT HERE FOR OBSERVATION.INCISION ON LT SIDE OF THE NECK C/D/I.PT IS UP WITH STANDBY ASSIST.PT REMAIN IN CALM THROUGHOUT SHIFT.WILL CONTINUE TO MONITOR PER POC
[2020-11-28 08:00] VITALS: BP 129/76
[2020-11-28 10:22] VITALS: BP 134/78
--- NOTE | 2020-11-28 13:43 | NUR ---
Assumed pt care at 7am.Pt in bed resting without c/o.Assessment completed.vss. Pt wanted to go home after lunch.Dc summary compile and reviewed with pt. Saline lock dc'd. Pt dc home per wc accompanied by long term care pharmacist at 1343.
--- NOTE | 2020-12-03 12:07 | PATH ---
[facility] [place] [address] PATHOLOGY RPT PROCEDURE Name: MIKE DE LA ROSA Room #: 454-P [facility] F[facility]ix Pinedo#: [id number] Admission: 11/27/20 Date of : 35 Discharge: 11/28/20 Report #: [id number] Path Case #: [id number] [facility] Accession Number: [id number] . 01 Material submitted: . parotid gland - RIGHT PAROTID. Modifiers: right . 01 Clinical history: . PAROTIDECTOMY . 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 - FOCAL SKELETAL MUSCLE INVASION PRESENT. - TUMOR APPROACHES BLACK INKED MARGIN FOCALLY. - FOCAL EXTRAGLANDULAR EXTENSION IDENTIFIED. - Four minute lymph nodes identified in periparotid soft tissue and intraparotid parenchyma with reactive changes (0/4). (IUV:larry; 12/02/2020) . . . Surgical Pathology Cancer Case Summary . Protocol posting date: September 2016 . [employer]: . Procedure ___ Parotidectomy . Tumor Site ___ Parotid gland . Tumor Laterality ___ Right . Tumor Focality ___ Unifocal . Tumor Size Greatest dimension (centimeters): 3.8 cm . Histologic Type ___ Mucoepidermoid carcinoma, low grade . Tumor Extension [facility] [address] [place] [address] PATHOLOGY RPT PROCEDURE Name: MIKE DE LA ROSA [id number] Admission: 11/27/20 Date of : 35 Discharge: 11/28/20 Report #: [id number] Path Case #: [id number] Macroscopic Tumor Extension (specify): None . Margins ___ Involved by carcinoma Specify margin(s), if possible: black inked margin . Lymphovascular Invasion ___ Not identified . Perineural Invasion ___ Not identified . Regional Lymph Nodes . Number of Lymph Nodes Involved: 0 Number of Lymph Nodes Examined: 4 (soft tissue adjacent to the parotid gland and one within the salivary gland) . . Pathologic Stage Classification (pTNM, AJCC 8th Edition) Note: Reporting of pT, pN, and (when applicable) pM categories is based on information available to the pathologist at the time the report is issued. . . Primary Tumor (pT) ___ pT2: Tumor larger than 2 cm but not larger than 4 cm in greatest dimension without extraparenchymal extension (see comment below) . Regional Lymph Nodes (pN) ___ pNX: Regional lymph nodes cannot be assessed . Comment(s) Microscopically focal extraglandular extension is noted; however, macroscopic extension or clinical evidence is not present. Therefore, the tumor is staged as pT2 based on the size. . Extraparenchymal extension is clinical or macroscopic evidence of invasion of soft tissues. Microscopic evidence alone does not constitute extraparenchymal extension for classification purposes. [facility] [place] 0903 Local . 02 Comment: The most recent parotid needle core biopsy showed an intermediate grade neoplasm with desmoplastic stroma as well as epithelial cells showing reactivity with p63 (performed on the biopsy tissue). Findings on that biopsy were suggestive of squamous cell carcinoma or a partially sampled mucoepidermoid carcinoma. A low-grade mucoepidermoid carcinoma is [address] [address] PATHOLOGY RPT PROCEDURE Name: MIKE DE LA ROSA Room #: 454-P [facility] Félix Pinedo#: [id number] Admission: 11/27/20 Date of : 35 Discharge: 11/28/20 Report #: [id number] Path Case #: [id number] identified within the current parotidectomy examined. In addition, the tumor shows focal skeletal muscle invasion, focal extraglandular extension, as well as focal marginal involvement. . Dr. Mike Downs has seen this case and concurs with the diagnosis rendered. . Findings of this case are telephoned to Dr. Thang Ivesron' academic affairs assistant, in the afternoon of 12/02/2020 and a voicemail is left on her line with a call back number. The findings are also conveyed to Dr. Epifanio Paez in the afternoon of 12/02/2020. (IUV:larry; 12/02/2020) . 02 Electronically signed: . Gely Grajeda MD, Pathologist NPI- [id number] . 01 Gross description: . The specimen is received in formalin, labeled "Mike De La Rosa, right parotid". Received is a 10 g segment of pink-luo tissue measuring 4.1 x 3.0 x 2.0 cm in greatest dimensions. The surgical margin is inked. Sectioning reveals a white-luo mucoid-appearing mass measuring 3.8 x 2.7 x 2.0 cm in greatest dimensions, which grossly abuts the inked margin. Normal glandular tissue is not grossly identified. Alternating sections are submitted in cassettes A1 through A5. (CAA; 11/27/2020) QAC/QAC 11/27/2020 1748 Local . 02 Pathologist provided ICD-10: C07 . 02 CPT . 550372 Specimen Comment: A courtesy copy of this report has been sent to [phone] Specimen Comment: [phone] Specimen Comment: Report sent to / DR PAEZ Performed at: [address], [place] [id number] MD Yosvany Mixon MD Phone: [phone] Performed at: [address] [id number] MD Gely Grajeda MD Phone: [phone]
== END 2020-11-28 13:44 | disposition home or self-care (01) ==
LOC: TBA 09:34 → OR 09:34 → TBA 09:36 → OR 13:57 → 4W 16:12 → OR 23:24 → 4W 23:25
PROVIDERS: ADMIT Otolaryngology Plastic Surgery within the Head & Neck; ATTEND Otolaryngology Plastic Surgery within the Head & Neck
DX: C07 Malignant neoplasm of parotid gland (principal); Z20.822 Contact with and (suspected) exposure to COVID-19; N17.9 Acute kidney failure, unspecified; M54.9 Dorsalgia, unspecified; I44.2 Atrioventricular block, complete; Z79.899 Other long term (current) drug therapy
CPT/HCPCS: 50101; 50386; 50398; 52190; 52220; 52225; 56524; 56526; 56527; 57006; 62110; 62900; 70005

== ENCOUNTER → 2021-02-19 | Outpatient (CLI) | payer OTHER, BC ==
[~2021-02-19] VITALS: Ht 182.9 cm; Wt 95.4 kg
[2021-02-19 10:44] VITALS: BP 112/57
--- NOTE | 2021-02-19 11:09 | NUR ---
Pain Clinic Assessment: 1. History of Osteoarthritis: BACK shoulders, neck, hands , feet History of Rheumatoid Arthritis: Not Applicable 2. Height: 6 ft. 0 in. 182.9 cm. Weight: 210.4 lb. oz. 95.437 kg. Patient's BMI: 28.5 3. Vital Signs: BP: 112/57 Pulse: 60 Resp: 14 Temp: 02 Sat: 98 ECG Mon: 4. Pain Intensity: 2 5. Fall Risk: Dizziness: N Needs help standing or walking: N Fallen in the last 3 months: N Fall risk comments: USES CANE 6. Patient on Blood Thinner: *FARNAZQUIS 7. History of Hypertension: Y 8. Opioid Therapy greater than 6 weeks: Y Opiate Contract Signed: 12/26/15 9. Risk Assessment Tool Provided: LOW RISK 0 10. Functional Assessment Tool: 11. Recreational Drug Use: Never Drug Type: Tobacco Use: Never Smoker Tobacco Type: Amount or Packs/day: How Many Years: Alcohol Use: No Frequency: Quant:
== END ==
LOC: PAIN 10:21
PROVIDERS: ATTEND Clinical Nurse Specialist Adult Health
DX: M54.16 Radiculopathy, lumbar region (principal); M19.09 Primary osteoarthritis, other specified site; G62.89 Other specified polyneuropathies; Z79.899 Other long term (current) drug therapy

== ENCOUNTER → 2021-05-14 | Outpatient (CLI) | payer OTHER, BC ==
[~2021-05-14] VITALS: Ht 182.9 cm; Wt 96.2 kg
[2021-05-14 11:20] VITALS: BP 128/76
--- NOTE | 2021-05-14 11:45 | NUR ---
Pain Clinic Assessment: 1. History of Osteoarthritis: BACK shoulders, neck, hands , feet History of Rheumatoid Arthritis: Not Applicable 2. Height: 6 ft. 0 in. 182.9 cm. Weight: 212.0 lb. oz. 96.163 kg. Patient's BMI: 28.7 3. Vital Signs: BP: 128/76 Pulse: 60 Resp: 16 Temp: 02 Sat: 100 ECG Mon: 4. Pain Intensity: 3 5. Fall Risk: Dizziness: N Needs help standing or walking: N Fallen in the last 3 months: N Fall risk comments: USES CANE 6. Patient on Blood Thinner: *FARNAZQUIS 7. History of Hypertension: Y 8. Opioid Therapy greater than 6 weeks: Y Opiate Contract Signed: 12/26/15 9. Risk Assessment Tool Provided: LOW RISK 0 10. Functional Assessment Tool: 11. Recreational Drug Use: Never Drug Type: Tobacco Use: Never Smoker Tobacco Type: Amount or Packs/day: How Many Years: Alcohol Use: No Frequency: Quant:
== END ==
LOC: PAIN 07:18
PROVIDERS: ATTEND Anesthesiology Pain Medicine
DX: M47.26 Other spondylosis with radiculopathy, lumbar region (principal); G89.29 Other chronic pain; M19.019 Primary osteoarthritis, unspecified shoulder; M19.079 Primary osteoarthritis, unspecified ankle and foot; I10 Essential (primary) hypertension; M25.512 Pain in left shoulder; M25.511 Pain in right shoulder; Z79.899 Other long term (current) drug therapy; Z79.891 Long term (current) use of opiate analgesic; Z68.32 Body mass index [BMI] 32.0-32.9, adult

== ENCOUNTER → 2021-05-28 | Outpatient (CLI) | payer OTHER, BC ==
--- NOTE | 2021-05-28 11:36 | 2DMMODE ---
[facility] [place] [address] 2 D/M-MODE ECHOCARDIOGRAM Name: JOSÉ LUIS SALAMANCA Room #: REG MUSA [facility]asJonasVirajJonas#: [id number] Admission: 05/28/21 Attend Phys: Epifanio Lezama MD Discharge: Date of : 35 Report #: [id number] THIS REPORT FOR: cc: Epifanio Lezama MD, Neal A. MD Santiago, Patrick MD [facility] ~ APPROVED REPORT Study performed: 05/28/2021 10:14:17 EXAM: Comprehensive 2D, Doppler, and color-flow Echocardiogram Patient Location: Out-Patient Room #: 1 Status: routine BSA: 2.32 HR: 59 bpm BP: 140/84 mmHg Rhythm: Pacemaker Other Information Study Quality: Good Indications Aortic Valve Disease Dyspnea 2D Dimensions RVDd: 42.43 mm IVSd: 14.49 (7-11mm) LVOT Diam: 23.54 (18-24mm) LVDd: 43.31 mm PWd: 16.39 (7-11mm) Ascending Ao: 39.09 (22-36mm) LVDs: 29.57 (25-40mm) Left Atrium: 50.93 (27-40mm) Aortic Root: 35.58 mm IVC: 26.00 mm Volumes Left Atrial Volume (Systole) Single Plane 4CH: 156.69 mL Single Plane 2CH: 126.56 mL LA ESV Index: 71.00 mL/m2 Aortic Valve AoV Peak Ravin.: 2.75 m/s AO Peak Gr.: 30.14 mmHg LVOT Max P.94 mmHg AO Mean Gr.: 20.66 mmHg LVOT Mean P.52 mmHg [facility] [address] [place] [address] 2 D/M-MODE ECHOCARDIOGRAM Name: JOSÉ LUIS SALAMANCA Room #: REG [facility]#: [id number] Admission: 05/28/21 Attend Phys: Epifanio Lezama, Discharge: Date of : 35 Report #: [id number] AO V2 Mean: 2.19 m/s LVOT Max V: 0.99 m/s AO V2 VTI: 66.64 cm LVOT Mean V: 0.76 m/s SUZETTE (VTI): 1.60 cm2 LVOT V1 VTI: 24.50 cm SUZETTE Vmax: 1.57 cm2 SV (LVOT): 106.63 mL Pulmonary Valve PV Peak Ravin.: 0.99 m/s PV Peak Gr.: 3.89 mmHg Tricuspid Valve TR Peak Ravin.: 3.37 m/s TR Peak Gr.: 45.55 mmHg PA Pressure: 56.00 mmHg Left Ventricle The left ventricle is normal size. Mild concentric left ventricular hypertrophy. The left ventricular systolic function is normal. The left ventricular ejection fraction is within the normal range. LVEF is 55-60%. This study is not technically sufficient to allow evaluation of the LV diastolic function. Right Ventricle Right ventricle is at the upper limits of normal. The right ventricular systolic function is normal. Pacemaker lead is present in the right ventricle. Atria Left atrium is dilated. Right atrium is dilated. Pacemaker lead is present in the right atrium. Aortic Valve The aortic valve is normal in structure. Aortic valve is calcified. No aortic regurgitation is present. Calculated aortic valve area is 1.6 cm2 with maximum pressure gradient of 30 mmHg and mean pressure gradient of 21 mmHg. Mitral Valve The mitral valve is normal in structure. There is mitral annular calcification. Mild mitral regurgitation. No evidence of mitral valve stenosis. Tricuspid Valve The tricuspid valve is normal in structure. There is mild tricuspid regurgitation. Estimated PAP 56 mmHg. There is moderate pulmonary hypertension. [address] [address] 2 D/M-MODE ECHOCARDIOGRAM Name: JOSÉ LUIS SALAMANCA Room #: REG Shahida#: [id number] Admission: 05/28/21 Attend Phys: Epifanio Lezama, Discharge: Date of : 35 Report #: [id number] Pulmonic Valve The pulmonary valve is normal in structure. Trace pulmonic regurgitation. Great Vessels The aortic root is normal in size. IVC is dilated and collapses <50% with inspiration. Pericardium There is no pericardial effusion. <Conclusion> Normal left ventricle size with mild concentric hypertrophy Ejection fraction 55% Normal right ventricle size/function Moderate biatrial enlargement Moderate aortic valve calcification Mild aortic valve stenosis aortic valve area estimated at 1.6 cm and mean gradient of 21 mmHg Normal mitral valve structure Mild mitral valve insufficiency Mild tricuspid valve insufficiency Pulmonary systolic pressure estimated 56 mmHg No pericardial effusion Normal aortic root size Pacemaker wire detected in the right ventricle <ELECTRONICALLY SIGNED> By: Ruben Norton MD, FACC 05/28/21 1136 1136 1136 Ruben Norton MD, FACC /INF
== END ==
LOC: CV 09:54
PROVIDERS: ATTEND Family Medicine
DX: I08.3 Combined rheumatic disorders of mitral, aortic and tricuspid valves (principal); I27.20 Pulmonary hypertension, unspecified; R06.00 Dyspnea, unspecified